=== PATIENT | female | born 1940 | race Caucasian/White ===

== ENCOUNTER 2021-06-11 12:32 | Emergency (ER) | payer MEDICARE, SELFPAY ==
--- NOTE | ~2021-06-11 | XR_ITS ---
EXAMINATION: XR HAND, LEFT CLINICAL INFORMATION: Fall. COMPARISON: None TECHNIQUE: Three views of the left hand. FINDINGS: No fracture. No dislocation. No soft tissue abnormality. This degenerative joint narrowing and marginal bone spurs of the IP joints of the digits and marked degenerative joint narrowing and subchondral sclerosis and spur of the first metacarpal carpal joint. XR/XR hand LT min 3V IMPRESSION: 1. No acute abnormality right hand. 2. Degenerative joint disease of the hand.
--- NOTE | ~2021-06-11 | XR_ITS ---
EXAMINATION: XR SHOULDER, RIGHT CLINICAL INFORMATION: Fall. Pain. COMPARISON: None TECHNIQUE: Three views of the right shoulder. FINDINGS: No fracture. No dislocation. There is small spur of the distal clavicle at the acromioclavicular joint along the inferior surface of the clavicle. No soft tissue calcification. XR/XR shoulder RT min 2V IMPRESSION: 1. No acute abnormality. 2. Degenerative change of the acromioclavicular joint.
--- NOTE | ~2021-06-11 | XR_ITS ---
EXAMINATION: XR CLAVICLE, RIGHT CLINICAL INFORMATION: Fall. Pain. COMPARISON: None TECHNIQUE: Single of the right clavicle. FINDINGS: No fracture of the clavicle. No dislocation of the sternoclavicular or the acromioclavicular joint. There is degenerative spur of the distal clavicle at the inferior side of the bone at the acromioclavicular joint. XR/XR clavicle RT IMPRESSION: No acute abnormality right clavicle.
--- NOTE | ~2021-06-11 | XR_ITS ---
EXAMINATION: XR BILATERAL HIPS WITH AP PELVIS CLINICAL INFORMATION: Fall COMPARISON: None TECHNIQUE: AP view of the pelvis and single views of each hip were obtained. FINDINGS: No acute fracture or malalignment. Mild osteoarthritis in the hips is characterized by small marginal osteophytes primarily. Enthesopathic spurring is present at the greater trochanters and anterior superior iliac spines. There is degenerative spondylosis in the lower lumbar spine. . Symphysis and SI joints appear relatively well-preserved. Soft tissues are unremarkable. XR/XR hips JERO min 3V IMPRESSION: No acute fracture or malalignment in the pelvis and hips. Mild osteoarthritis in the hips.
--- NOTE | ~2021-06-11 | XR_ITS ---
EXAMINATION: XR ELBOW, RIGHT CLINICAL INFORMATION: Fall. COMPARISON: None TECHNIQUE: Three views of the right elbow. FINDINGS: There is no fracture. No dislocation. No joint effusion. There are spurs of the proximal radius along the metadiaphysis of the radial head. There is spur of the distal humerus at the posterior medial humeral condyle. XR/XR elbow RT min 3V IMPRESSION: No acute abnormality of the elbow.
[2021-06-11 14:28] VITALS: BP 201/91; PULSE 91; RESP 18; TEMP 36.7; O2SAT 99; BMI 29.2
== END 2021-06-11 17:40 | disposition left against medical advice (07) ==
PROVIDERS: Emergency Provider Emergency Medicine; PCP Internal Medicine
DX: M79.601 Pain in right arm (principal); Z91.81 History of falling
CPT/HCPCS: 73000; 73030; 73080; 73130; 73522; 99282; 99283

== ENCOUNTER 2021-06-30 10:30 | Outpatient (REF) | payer MEDICARE, SELFPAY ==
--- NOTE | ~2021-06-30 | MM_ITS ---
EXAMINATION: BONE DENSITOMETRY CLINICAL INDICATION: Other specified disorders of bone density and structure. COMPARISON: Baseline BD dated 02/13/2019. TECHNIQUE: Using a [employer] DXA System (software version: 13.1) manufactured by [employer], dual-energy x-ray absorptiometry was performed of the lumbar spine and left hip. The images are of good technical quality. Summary results are attached. FINDINGS: AP SPINE L1-L2 (excluding L3 and L4): The data of L1-L4 has been changed to exclude the L3 and L4 vertebral bodies, because degenerative changes at these levels may cause overestimation of lumbar spine density. Current: BMD 1.141 g/cm2, Z-score 1.6, T-score -0.2, normal, 0.9% increase from baseline (<5% change is not significant). Baseline: BMD 1.131 g/cm2. LEFT FEMUR, NECK: Current: BMD 0.762 g/cm2, Z-score 0.1, T-score -2.0, osteopenia. Baseline: BMD 0.795 g/cm2. LEFT FEMUR, TOTAL: Current: BMD 0.924 g/cm2, Z-score 1.3, T-score -0.7, normal, 0.3% increase from baseline (<5% change is not significant). Baseline: BMD 0.921 g/cm2. IDENTIFIED RISK FACTORS: Recurrent falls, history of fracture (adult), thiazide, menopause, left oophorectomy. HISTORY OF FRACTURE: Wrist. MEDICATIONS: None listed. MM/XR DEXA axial skeleton IMPRESSION: 1. DIAGNOSIS: Osteopenia based on the lowest T-score value of -2.0 in the femoral neck applying World Health Organization criteria. 2. 10-YEAR FRACTURE RISK PREDICTION, FRAX: Major osteoporotic fracture (clinical spine, forearm, hip or shoulder) 22.3%. Hip fracture 5.9%. 3. Treatment Recommendations: NOF guidelines recommend consideration for treatment in postmenopausal women and men age 50 and older presenting with the following: -A hip or vertebral (clinical or morphometric) fracture. -T-score less than or equal to -2.5 at the femoral neck or spine after appropriate evaluation to exclude secondary causes. -Low bone mass at the hip or spine and a 10-year fracture probability by FRAX of greater than or equal to 3% for hip fracture or greater than or equal to 20% for major osteoporotic fracture based on the [place] adapted WHO algorithm. 4. Other Recommendations: All treatment decisions require clinical judgment and consideration of individual patient factors, including patient preferences, comorbidities, previous drug use, risk factors not captured in the FRAX model (e.g. frailty, falls, vitamin D deficiency, increased bone turnover, interval significant decline in bone density) and possible under or overestimation of fracture risk by FRAX. Additional medical evaluation for secondary cause of low bone mineral density may be appropriate. FUTURE SCAN RECOMMENDATION: People with diagnosed cases of osteoporosis or at high risk for fracture should have regular bone mineral density tests. For patients eligible for Medicare, routine testing is allowed once every 2 years. The testing frequency can be increased to one year for patients who have rapidly progressing disease, those who are receiving or discontinuing medical therapy to restore bone mass, or have additional risk factors.
== END 2021-06-30 10:31 | disposition home or self-care (01) ==
LOC: HO.MAMMO 10:30
PROVIDERS: Visit Provider Internal Medicine
DX: Z13.820 Encounter for screening for osteoporosis (principal); M85.80 Other specified disorders of bone density and structure, unspecified site; Z78.0 Asymptomatic menopausal state; Z87.81 Personal history of (healed) traumatic fracture; Z90.721 Acquired absence of ovaries, unilateral
CPT/HCPCS: 77080

== ENCOUNTER 2022-08-28 09:59 | Outpatient (REF) | payer MEDICARE, SELFPAY ==
[2022-08-28 10:46] LABS: MANUAL DIFF FLAG NO
[2022-08-28 10:54] LABS: Basophils Absolute Auto 0.1 X10*3/uL (0.0-0.2); Basophils Percent Auto 0.5 % (0-2); Eosinophils Absolute Auto 0.1 X10*3/uL (0.0-0.4); Hematocrit 39.1 % (37.0-47.0); Hemoglobin 13.3 g/dl (12.0-16.0); Imm Gran Abs Auto 0.03 X10*3/uL (0.00-0.03); Imm Gran Pct Auto 0.3 % (0.0-0.4); Lymphocytes Absolute Auto 2.8 X10*3/uL (1.2-4.9); Lymphocytes Percent Auto 30.2 % (20-40); Mean Corpuscular Hemoglobin 32.3 pg (27.0-33.0); Mean Corpuscular Volume 94.9 fL (80.0-98.0); Mean Platelet Volume 9.8 fL (9.4-12.3); Monocytes Absolute Auto 0.7 X10*3/uL (0.1-1.2); Monocytes Percent Auto 7.4 % (2-11); Neutrophils Absolute Auto 5.6 x10*3/uL (2.0-8.3); Neutrophils Percent Auto 60.6 % (45-73); Platelet Count 253 X10*3/uL (160-400); Red Blood Count 4.12 X10*6/uL (4.20-5.50); Red Cell Distribution Width 12.3 % (11.0-16.0); White Blood Count 9.2 X10*3/uL (4.8-10.8)
[2022-08-28 11:51] LABS: Alanine Aminotransferase 34 U/L (0-31); Albumin Level 4.3 g/dL (3.5-5.0); Alkaline Phosphatase 90 U/L (39-117); Anion Gap 13 (12-20); Aspartate Amino Transferase 34 U/L (5-31); Bilirubin Total 0.8 mg/dL (0.0-1.0); Blood Urea Nitrogen 13 mg/dL (9-16); Carbon Dioxide 30 mmol/L (22-29); Chloride 102 mmol/L (96-108); Cholesterol 218 mg/dL; Estimated Glomerular Filt Rate > 60; Glucose Random 104 mg/dL (60-115); HDL Cholesterol 59 mg/dL; LDL Cholesterol Calculated 127 mg/dl; Potassium 3.9 mmol/L (3.3-5.1); Sodium 141 mmol/L (135-145); Total Protein 6.8 g/dL (6.5-8.0); Triglycerides 163 mg/dL
[2022-08-28 12:11] LABS: Free T4 (Free Thyroxine) 0.89 ng/dL (0.71-1.85); Thyroid Stimulating Hormone 2.81 uIU/mL (0.32-4.0); Vitamin B12 431 pg/mL (200-900); Vitamin D 25-OH Total 24.5 ng/mL (>30)
== END 2022-08-28 10:00 | disposition home or self-care (01) ==
LOC: HO.10HDL 09:59
PROVIDERS: Visit Provider Internal Medicine
DX: E78.00 Pure hypercholesterolemia, unspecified (principal); M85.80 Other specified disorders of bone density and structure, unspecified site; E55.9 Vitamin D deficiency, unspecified
CPT/HCPCS: 36415; 80053; 80061; 82306; 82607; 82746; 84439; 84443; 85025

== ENCOUNTER 2023-03-08 08:46 | Outpatient (AMB) | payer MEDICARE, SELFPAY ==
[2023-03-08 08:46] VITALS: BP 144/66; PULSE 67; O2SAT 99; BMI 29.9
--- NOTE | 2023-03-08 08:46 | MHC.PC.OV ---
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 per policy Accompanied by: Self / Same As Patient Allergies lisinopril Allergy (Unknown, Verified 11/21/22 13:42) Unknown amlodipine Adverse Reaction (Intermediate, Verified 11/21/22 13:42) leg swelling Tobacco use date assessed: 11/21/22 Fall risk assessment: No Falls in past year Last assessed Fall Risk: 03/08/23 Dental Screening Dental Screen Date: 03/08/23 Did you have a dental visit in the last 12 months?: Yes Did you have a dental problem in the last 6 months where you did not have access to dental care?: No Was dental information given to patient?: Patient has dentist HPI eye surgery 03/20/23 HPI Details Having a right cataract repaired; has HTN and hyperlipidemia; no history of CAD [facility] Medical History Obesity (BMI 30.0-34.9) Breast cancer screening by mammogram Overweight (BMI 25.0-29.9) Ulnar neuropathy Anxiety and depression Hypercholesterolemia Vitamin D deficiency Lumbar degenerative disc disease GERD (gastroesophageal reflux disease) Hypertension Surgical History History of carpal tunnel surgery History of lumbar surgery History of left oophorectomy History of D&C History of tonsillectomy Family History Father No problems noted. Mother Cancer Hypertension Brother In good health Son In good health Son In good health Social History Housing: House Alcohol intake: current Alcohol intake frequency: a few times a week Patient Tobacco Use Status: Never used Tobacco e-Cigarette/Vaping Use: Never Used Second Hand Smoke Exposure: No service: No Current occupational status: retired Cognitive needs: No Hearing needs: Yes (hearing aide) Vision needs: Yes (glasses) Questionnaire PHQ-9 Over the last 2 weeks, how often have you been bothered by any of the following problems? 1. Little interest or pleasure in doing things: not at all 2. Feeling down, depressed, or hopeless: not at all 3. Trouble falling or staying asleep, or sleeping too much: not at all 4. Feeling tired or having little energy: not at all 5. Poor appetite or overeating: not at all 6. Feeling bad about yourself - or that you are a failure or have let yourself or your family down: not at all 7. Trouble concentrating on things, such as reading the newspaper or watching television: not at all 8. Moving or speaking so slowly that other people could have noticed. Or the opposite - being so fidgety or restless that you have been moving around a lot more than usual: not at all 9. Thoughts that you would be better off or of hurting yourself in some way: not at all Total score: 0 Depression Screening Interpretation: Negative Source: Developed by Drs. Ag Disla, Ruma Bowen, Chico Garza and colleagues, with an educational emil from [email or web address]. Thrive Questionnaire Date Thrive assessed: 11/21/22 AUDIT C Alcohol Use Questionnaire (AUDIT-C) 1. How often do you have a drink containing alcohol?: Never 2. How many drinks containing alcohol do you have on a typical day when you are drinking?: 1 or 2 3. How often do you have six or more drinks on one occasion?: Never Total Score: 0 LORA-7 AMB Questionnaire LORA-7 Date LORA - 7 assessed: 11/21/22 Source: Developed by Drs. Ag Disla, Chico Ramirez and colleagues, with an educational emil from [email or web address]. Review of Systems Const Denies chills, Denies fatigue, Denies headache(s) and Denies weight loss Eyes Denies change in vision, Denies diplopia and Denies eye pain ENT Denies vertigo, Denies dizziness, Denies headache(s) and Denies nasal discharge Card Denies chest pain, Denies rapid heart rate and Denies dyspnea on exertion Resp Denies chest congestion, Denies cough, Denies pain with cough and Denies dyspnea on exertion GI Denies abdominal pain, Denies hematochezia and Denies change in bowel habits Musc Denies myalgias, Denies arthralgias and Denies joint swelling Skin/Breast Denies lesions and Denies unusual bruising Neuro Denies vertigo, Denies dizziness, Denies headache(s) and Denies focal weakness Endo Denies fatigue Physical exam (Primary Care) Vital Signs: Last Vital Signs Pulse 67 03/08/23 08:46 BP 144/66 H 03/08/23 08:46 Pulse Ox 99 03/08/23 08:46 Oxygen Delivery Method Room Air 03/08/23 08:46 BMI result Body Mass Index 29.9 Tobacco/Smoking Status: Tobacco use Status Tobacco use date assessed 11/21/22 03/08/23 08:47 Patient Tobacco Use Status Never used Tobacco 03/08/23 08:47 e-Cigarette/Vaping Use Never Used 03/08/23 08:47 PHQ-9: PHQ-9 Score PHQ-9: Total score 0 03/08/23 08:47 Depression Screening Interpretation: Negative Thrive Assessment: Date of Thrive Assessment Date Thrive assessed 11/21/22 03/08/23 08:47 Const General: cooperative, healthy appearing and no acute distress Orientation/consciousness: oriented to person, oriented to place and oriented to time HENMT Head: Yes normal to inspection, Yes normocephalic and Yes atraumatic Mouth: Normal oral and palatal mucosa present and tongue normal Throat: Yes posterior oropharynx normal and Yes uvula midline Eyes General: appearance normal, both eyes and all related structures Neck Neck: Yes normal visual inspection, Yes full ROM and Yes no lymphadenopathy Thyroid: Thyroid normal Carotids: normal carotid upstroke Chest Chest palpation & inspection: normal inspection of the chest Resp Effort & Inspection: normal respiratory effort and able to speak in complete sentences Auscultation: clear to auscultation bilaterally Cardio Jugular venous distension: no JVD Palpation: normal PMI Rate: regular rate Rhythm: regular rhythm Heart sounds: S1 normal heart sound present and S2 normal heart sound present GI Inspection: Yes normal to inspection Palpation (GI): Soft to palpation and No hepatosplenomegaly present Auscultation: normal bowel sounds General: Yes no CVA tenderness Back/Spine/Pelvis Back: no CVA tenderness Skin General skin exam: no rashes or lesions noted Neuro General: oriented to person, oriented to place and oriented to time Extrem General: Yes normal to inspection and Yes full ROM Assessment and Plan Assessment & Plan (1) Preop exam for internal medicine: Code(s): Z01.818 - Encounter for other preprocedural examination Plan: low risk for cardiovascular complications; cleared for surgery (2) Hypertension: Code(s): I10 - Essential (primary) hypertension Qualifiers: Hypertension type: essential hypertension Qualified Code(s): I10 - Essential (primary) hypertension Plan: stable; same rx (3) Hypercholesterolemia: Code(s): E78.00 - Pure hypercholesterolemia, unspecified Plan: stable; sa,e rx Coding Level of Care Code Est Pt Level 4 (83835) Diagnoses Preop exam for internal medicine Z01.818 Essential hypertension I10 Hypertension type: essential hypertension Hypercholesterolemia E78.00 Additional Codes PHQ-9 - 81238 - PHQ-9 Billing: ([id number])
== END 2023-03-08 09:17 | disposition home or self-care (01) ==
PROVIDERS: PCP Internal Medicine; Visit Provider Internal Medicine
DX: Z01.818 Encounter for other preprocedural examination (principal); I10 Essential (primary) hypertension; E78.00 Pure hypercholesterolemia, unspecified
CPT/HCPCS: 99214

== ENCOUNTER 2023-05-23 10:42 | Outpatient (AMB) | payer MEDICARE, SELFPAY ==
[2023-05-23 10:48] VITALS: BP 180/80; PULSE 63; O2SAT 99; BMI 29.9
--- NOTE | 2023-05-23 10:49 | MHC.PC.OV ---
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 Required: No Accompanied by: Self / Same As Patient Allergies lisinopril Allergy (Unknown, Verified 05/23/23 10:49) Unknown amlodipine Adverse Reaction (Intermediate, Verified 05/23/23 10:49) leg swelling Tobacco use date assessed: 11/21/22 Fall risk assessment: No Falls in past year Last assessed Fall Risk: 05/23/23 Dental Screening Dental Screen Date: 05/23/23 Did you have a dental visit in the last 12 months?: Yes Did you have a dental problem in the last 6 months where you did not have access to dental care?: No Was dental information given to patient?: Patient has dentist HPI Hypertension HPI Details [age] year old overweight female with hypertension hypercholesterolemia GERD last seen in November 2022 patient's colonoscopy is up-to-date mammogram is due in April bone density is up-to-date. Review of the notes in February 2023 patient was seen here in the office for preoperative evaluation for eye surgery March 2023 cleared for surgery. R eye glaucoma and cataract surgery hx of shingles and has a scar, mild improvement , L eye still has cataract but has macular deg. so not done. 2022 last blood work [facility] Medical History (Updated 05/23/23 @ 11:30 by Devin Reina MD) Breast cancer screening by mammogram Obesity (BMI 30.0-34.9) Overweight (BMI 25.0-29.9) Ulnar neuropathy Anxiety and depression Hypercholesterolemia Vitamin D deficiency Lumbar degenerative disc disease GERD (gastroesophageal reflux disease) Hypertension Surgical History History of carpal tunnel surgery History of lumbar surgery History of left oophorectomy History of D&C History of tonsillectomy Family History Father No problems noted. Mother Cancer Hypertension Brother In good health Son In good health Son In good health Social History Housing: House Alcohol intake: current Alcohol intake frequency: a few times a week Patient Tobacco Use Status: Never used Tobacco e-Cigarette/Vaping Use: Never Used Second Hand Smoke Exposure: No service: No Current occupational status: retired Cognitive needs: No Hearing needs: Yes (hearing aide) Vision needs: Yes (glasses) Questionnaire Thrive Questionnaire Date Thrive assessed: 11/21/22 LORA-7 AMB Questionnaire LORA-7 Date LORA - 7 assessed: 11/21/22 Source: Developed by Drs. Ag Disla, Ruma Bowen, Chico Garza and colleagues, with an educational emil from [employer]. Physical exam (Primary Care) Vital Signs: Last Vital Signs Pulse 63 05/23/23 10:48 BP 180/80 H 05/23/23 10:48 Pulse Ox 99 05/23/23 10:48 Oxygen Delivery Method Room Air 05/23/23 10:48 BMI result Body Mass Index 29.9 Tobacco/Smoking Status: Tobacco use Status Tobacco use date assessed 11/21/22 05/23/23 10:50 Patient Tobacco Use Status Never used Tobacco 05/23/23 10:50 e-Cigarette/Vaping Use Never Used 05/23/23 10:50 Thrive Assessment: Date of Thrive Assessment Date Thrive assessed 11/21/22 05/23/23 10:50 Const General: alert; No acute distress Eyes Conjunctivae: conjunctivae normal Resp Auscultation: clear to auscultation bilaterally Cardio Rate: regular rate Rhythm: regular rhythm GI Inspection: Yes normal to inspection Extrem General: Yes normal to inspection and No edema Assessment and Plan Assessment & Plan (1) Hypertension: Code(s): I10 - Essential (primary) hypertension Qualifiers: Hypertension type: essential hypertension Qualified Code(s): I10 - Essential (primary) hypertension Plan: Continue with blood pressure medication. Decrease salt intake and exercise patient is taking hydrochlorothiazide 25 mg once a day and losartan 100 mg once a day and metoprolol 25 mg once a day. 3 BP med still high - advised work up renin agiotensin (2) Hypercholesterolemia: Code(s): E78.00 - Pure hypercholesterolemia, unspecified Plan: Avoid fried foods, chicken skin, eggs, butter margarine, pastries and meat. Be it pork or beef they have a lot of cholesterol LDL goal of less than 130 and triglyceride of less than 150. Patient on atorvastatin 10 mg once a day (3) GERD (gastroesophageal reflux disease): Code(s): K21.9 - Gastro-esophageal reflux disease without esophagitis Qualifiers: Esophagitis presence: without esophagitis Qualified Code(s): K21.9 - Gastro-esophageal reflux disease without esophagitis Plan: Avoid the foods that causes that usually spicy foods, tomato products, juices, coffee, soda and foods that your sensitive to. After eating do not lie down, allow 3-4 hours before in lie down. And keep the head of bed above 30 degrees to avoid the acid from going up. (4) Overweight (BMI 25.0-29.9): Code(s): E66.3 - Overweight Plan: Diet and exercise (5) Breast cancer screening by mammogram: Code(s): Z12.31 - Encounter for screening mammogram for malignant neoplasm of breast Plan: Reminded about mammogram Orders: Orders US renal BI Today I10 - Essential (primary) hypertension US renal doppler Today I10 - Essential (primary) hypertension Cortisol, Free Today I10 - Essential (primary) hypertension Aldost/Renin Today I10 - Essential (primary) hypertension UA w Microscopic Today I10 - Essential (primary) hypertension Complete Blood Count Auto Diff Today I10 - Essential (primary) hypertension Thyroid Stimulating Hormone Today I10 - Essential (primary) hypertension Comprehensive Met. Panel Today I10 - Essential (primary) hypertension Coding Level of Care Code Est Pt Level 4 (36180) Diagnoses Essential hypertension I10 Hypertension type: essential hypertension Hypercholesterolemia E78.00 Gastroesophageal reflux disease without esophagitis K21.9 Esophagitis presence: without esophagitis Overweight (BMI 25.0-29.9) E66.3 Breast cancer screening by mammogram Z12.
== END 2023-05-23 11:45 | disposition home or self-care (01) ==
PROVIDERS: PCP Internal Medicine; Visit Provider Internal Medicine
DX: I10 Essential (primary) hypertension (principal); E78.00 Pure hypercholesterolemia, unspecified; K21.9 Gastro-esophageal reflux disease without esophagitis; E66.3 Overweight; Z12.31 Encounter for screening mammogram for malignant neoplasm of breast
CPT/HCPCS: 99214

== ENCOUNTER 2023-06-26 08:37 | Outpatient (REF) | payer MEDICARE, SELFPAY ==
--- NOTE | ~2023-06-26 | US_ITS ---
EXAMINATION: ULTRASOUND RENAL WITH DOPPLER CLINICAL INFORMATION: Hypertension. COMPARISON: None. TECHNIQUE: Real-time grayscale, color Doppler, and duplex Doppler evaluation of the kidneys and renal vasculature was performed. FINDINGS: RENAL MEASUREMENTS: Right: 8.7 x 4.8 x 4.4 cm (Sag x AP x TV) Left: 9.0 x 4.8 x 6.2 cm (Sag x AP x TV) Small kidneys. Renal parenchyma is mildly echogenic suggesting chronic medical renal disease. No hydronephrosis. DOPPLER INTERROGATION: AORTA: Mid aorta: 89 cm/sec RIGHT MAIN RENAL ARTERY: Proximal: 167 cm/sec Mid: 117 cm/sec Distal: 156 cm/sec LEFT MAIN RENAL ARTERY: Proximal: 99 cm/sec Mid: 93 cm/sec Distal: 115 cm/sec RENAL-AORTIC RATIO (RAR): Right: 1.9 Left: 1.3 SEGMENTAL RESISTIVE INDICES: Right: 0.79-0.82 Left: 0.75-0.87 RENAL VEINS: Right: Patent with normal waveform. Left: Patent with normal waveform. US/US renal BI IMPRESSION: No evidence of hemodynamically significant renal artery stenosis. Small kidneys, echogenic renal parenchyma, and elevated resistive indices suggesting chronic medical renal disease.
--- NOTE | ~2023-06-26 | US_ITS ---
EXAMINATION: ULTRASOUND RENAL WITH DOPPLER CLINICAL INFORMATION: Hypertension. COMPARISON: None. TECHNIQUE: Real-time grayscale, color Doppler, and duplex Doppler evaluation of the kidneys and renal vasculature was performed. FINDINGS: RENAL MEASUREMENTS: Right: 8.7 x 4.8 x 4.4 cm (Sag x AP x TV) Left: 9.0 x 4.8 x 6.2 cm (Sag x AP x TV) Small kidneys. Renal parenchyma is mildly echogenic suggesting chronic medical renal disease. No hydronephrosis. DOPPLER INTERROGATION: AORTA: Mid aorta: 89 cm/sec RIGHT MAIN RENAL ARTERY: Proximal: 167 cm/sec Mid: 117 cm/sec Distal: 156 cm/sec LEFT MAIN RENAL ARTERY: Proximal: 99 cm/sec Mid: 93 cm/sec Distal: 115 cm/sec RENAL-AORTIC RATIO (RAR): Right: 1.9 Left: 1.3 SEGMENTAL RESISTIVE INDICES: Right: 0.79-0.82 Left: 0.75-0.87 RENAL VEINS: Right: Patent with normal waveform. Left: Patent with normal waveform. US/US renal doppler IMPRESSION: No evidence of hemodynamically significant renal artery stenosis. Small kidneys, echogenic renal parenchyma, and elevated resistive indices suggesting chronic medical renal disease.
[2023-06-26 09:38] LABS: MANUAL DIFF FLAG NO
[2023-06-26 09:56] LABS: Basophils Absolute Auto 0.1 X10*3/uL (0.0-0.2); Basophils Percent Auto 0.6 % (0-2); Eosinophils Absolute Auto 0.1 X10*3/uL (0.0-0.4); Hematocrit 38.8 % (37.0-47.0); Hemoglobin 13.7 g/dl (12.0-16.0); Imm Gran Abs Auto 0.03 X10*3/uL (0.00-0.03); Imm Gran Pct Auto 0.4 % (0.0-0.4); Lymphocytes Absolute Auto 2.1 X10*3/uL (1.2-4.9); Lymphocytes Percent Auto 26.8 % (20-40); Mean Corpuscular HGB Conc 35.3 g/dl (31.0-35.0); Mean Corpuscular Hemoglobin 33.1 pg (27.0-33.0); Mean Corpuscular Volume 93.7 fL (80.0-98.0); Mean Platelet Volume 9.3 fL (9.4-12.3); Monocytes Absolute Auto 0.6 X10*3/uL (0.1-1.2); Monocytes Percent Auto 7.7 % (2-11); Neutrophils Absolute Auto 4.9 x10*3/uL (2.0-8.3); Neutrophils Percent Auto 63.5 % (45-73); Platelet Count 247 X10*3/uL (160-400); Red Blood Count 4.14 X10*6/uL (4.20-5.50); Red Cell Distribution Width 11.9 % (11.0-16.0); White Blood Count 7.7 X10*3/uL (4.8-10.8)
[2023-06-26 10:13] LABS: Appearance Urine Cloudy; Color Urine Yellow; Glucose Urine UA Negative (Negative); Leukocyte Esterase Urine Moderate (2+) (Negative); Nitrite Urine Negative (Negative); UMIC TRIGGER UA YES; Urine Blood Negative (Negative); Urine Ketones Negative (Negative); Urine Protein Negative (Neg-Trace)
[2023-06-26 10:26] LABS: Bacteria Urine 3+ (None Seen); Hyaline Casts Urine 0-2 /LPF (0-2); RBC Urine 0-2 /HPF (0-2)
[2023-06-26 10:28] LABS: Alanine Aminotransferase 33 U/L (0-31); Albumin Level 4.5 g/dL (3.5-5.0); Alkaline Phosphatase 85 U/L (39-117); Anion Gap 12 (12-20); Aspartate Amino Transferase 30 U/L (5-31); Bilirubin Total 0.6 mg/dL (0.0-1.0); Blood Urea Nitrogen 17 mg/dL (9-16); Calcium 10.1 mg/dL (8.4-10.2); Carbon Dioxide 30 mmol/L (22-29); Chloride 96 mmol/L (96-108); Estimated Glomerular Filt Rate 58; Glucose Random 101 mg/dL (60-115); Potassium 3.6 mmol/L (3.3-5.1); Sodium 134 mmol/L (135-145); Total Protein 7.2 g/dL (6.5-8.0)
[2023-06-26 10:43] LABS: Thyroid Stimulating Hormone 2.25 uIU/mL (0.32-4.0)
[2023-07-02 13:38] LABS: Aldosterone/Renin Ratio 0.7 Ratio (0.9-28.9); Plasma Renin Activity 9.03 ng/mL/h (0.25-5.82)
[2023-07-02 18:23] LABS: Cortisol, Free 0.61 mcg/dL
== END 2023-06-26 08:38 | disposition home or self-care (01) ==
LOC: HO.US 08:37
PROVIDERS: PCP Internal Medicine; Visit Provider Internal Medicine
DX: I10 Essential (primary) hypertension (principal)
CPT/HCPCS: 36415; 76775; 80053; 81001; 82088; 82530; 84443; 85025; 93975

== ENCOUNTER 2023-07-17 13:11 | Outpatient (AMB) | payer MEDICARE, SELFPAY ==
[2023-07-17 13:15] VITALS: BP 170/72; PULSE 82; O2SAT 98; BMI 28.5
--- NOTE | 2023-07-17 13:15 | MHC.PC.OV ---
Vital Signs 07/17/23 13:15 Height 5 ft Weight 66.224 kg BMI 28.5 BP 170/72 H Blood Pressure Location Lt brachial Position Sitting Pulse 82 Pulse Source Pulse Oximeter Pulse Oximetry (%) 98 Oxygen Delivery Method Room Air Intake [place] [facility] [place] - Abdominal Pain Intake Note: Patient here [facility] discharge follow up nausea, vomiting dish 07/15/23 Telecom Field Technician Required: No Accompanied by: Self / Same As Patient Allergies lisinopril Allergy (Unknown, Verified 07/17/23 13:20) Unknown amlodipine Adverse Reaction (Intermediate, Verified 07/17/23 13:20) leg swelling Tobacco use date assessed: 07/17/23 Fall risk assessment: 1 Fall in past year Last assessed Fall Risk: 07/17/23 Dental Screening Dental Screen Date: 07/17/23 Did you have a dental problem in the last 6 months where you did not have access to dental care?: No Was dental information given to patient?: Patient has dentist HPI HPI Comments History of Present Illness Details 83-year-old female with history of hypertension, GERD, hyperlipidemia, osteopenia presents to the office for ER follow-up. Patient was seen at [facility] ED on both 07/13 and 07/14. She has been taking Ozempic to assist with weight loss for the last 4 weeks and has lost a total of 9 lb and is feeling optimistic about this. Dose was increase to 0.5mg on saturday. However, for the last 9 she has been feeling generally unwell with waves of nausea. Five days ago, began experiencing vomiting as well as chills and some occasional diarrhea after eating dinner. Around 03:00 early Saturday morning, she got up to go to the bathroom and felt lightheaded and syncopized while urinating which she attributes to vasovagal reaction. She woke up on the ground and presented to the ED for evaluation. She had also been noting some aching pain in the upper back neck and bilateral arms but no focal weakness was noted. She began feeling lightheaded and syncopized with head strike. Head CT was negative for any acute intracranial abnormality. Labs did reveal a hypokalemia of 2.6 and hyponatremia 127. Electrolytes were repleted with IV potassium and 1 L normal saline. She was recommended for admission but declined. Tropes were flat. She was discharged with potassium chloride 10 mEq 4 times daily. She also tells me she held her hydrochlorothiazide due to the hypokalemia and ongoing vomiting. Due to persistent vomiting, she returned to the ED for re-evaluation. Potassium level had improved to 4.0. Troponins were again negative. She was again offered admission but declined. She was discharged with prescription for Zofran. Today she states she is starting to feel better. No ongoing nausea and vomiting. She still experiences ache in the upper trapezius bilaterally and neck with occasional radition into the bilateral arms. SHe has been taking tylenol. Last dose of ozempic was saturday. She continues to hold hctz due to concerns about potassium. However, bp is quite uncontrolled today at 182/80 on recheck. She does check bp at home. [facility] Medical History Breast cancer screening by mammogram Obesity (BMI 30.0-34.9) Overweight (BMI 25.0-29.9) Ulnar neuropathy Anxiety and depression Hypercholesterolemia Vitamin D deficiency Lumbar degenerative disc disease GERD (gastroesophageal reflux disease) Hypertension Surgical History History of carpal tunnel surgery History of lumbar surgery History of left oophorectomy History of D&C History of tonsillectomy Family History Father No problems noted. Mother Cancer Hypertension Brother In good health Son In good health Son In good health Social History Housing: House Alcohol intake: current Alcohol intake frequency: a few times a week Patient Tobacco Use Status: Never used Tobacco e-Cigarette/Vaping Use: Never Used Second Hand Smoke Exposure: No service: No Current occupational status: retired Cognitive needs: Yes Hearing needs: Yes (hearing aide) Vision needs: Yes (glasses) Questionnaire PHQ-9 Over the last 2 weeks, how often have you been bothered by any of the following problems? 1. Little interest or pleasure in doing things: not at all 2. Feeling down, depressed, or hopeless: not at all 3. Trouble falling or staying asleep, or sleeping too much: not at all 4. Feeling tired or having little energy: not at all 5. Poor appetite or overeating: not at all 6. Feeling bad about yourself - or that you are a failure or have let yourself or your family down: not at all 7. Trouble concentrating on things, such as reading the newspaper or watching television: not at all 8. Moving or speaking so slowly that other people could have noticed. Or the opposite - being so fidgety or restless that you have been moving around a lot more than usual: not at all 9. Thoughts that you would be better off or of hurting yourself in some way: not at all Total score: 0 Depression Screening Interpretation: Negative Depression Screening Done: Yes Source: Developed by Drs. Ag Disla, Ruma Bowen, Chico Garza and colleagues, with an educational emil from [employer]. Thrive Questionnaire Date Thrive assessed: 07/17/23 I am a: Patient What is your living situation today?: I have a steady place to live Within the past 12 months, did the food you bought not last and you didn't have the money to get more?: Never true Within the past 12 months, did you worry whether your food would run out before you got money to buy more?: Never true Do you have trouble paying for medicines?: No Do you have trouble getting transportation to medical appointments?: No Do you have trouble paying your heating and electricity bill?: No Do you have trouble taking care of your child, family member or friend?: No Do you have trouble with day-to-day activities such as bathing, preparing meals, shopping, managing finances, etc.?: No Are you currently unemployed and looking for a job?: No Are you interested in more education?: No Please select the resources that you would like help with: None Currently or been in a relationship where the following occur: no concerns reported THRIVE Score: 0 AUDIT C Alcohol Use Questionnaire (AUDIT-C) 1. How often do you have a drink containing alcohol?: Monthly or less 2. How many drinks containing alcohol do you have on a typical day when you are drinking?: 1 or 2 3. How often do you have six or more drinks on one occasion?: Never Total Score: 1 LORA-7 AMB Questionnaire LORA-7 Date LORA - 7 assessed: 07/17/23 Feeling nervous, anxious, or on edge: 0 = Not at all Not being able to stop or control worryin = Not at all Worrying too much about different things: 0 = Not at all Trouble relaxin = Not at all Being so restless that it is hard to sit still: 0 = Not at all Becoming easily annoyed or irritable: 0 = Not at all Feeling afraid as if something awful might happen: 0 = Not at all Total LORA-7 score (0-4 normal; 5-9 mild; 10-14 moderate; 15-21 severe): 0 Source: Developed by Drs. Ag Disla, Ruma Bowen, Chico Garza and colleagues, with an educational emil from [employer]. Review of Systems Const All systems reviewed & are unremarkable except as noted in HPI and below Physical exam (Primary Care) Vital Signs: Last Vital Signs Pulse 82 07/17/23 13:15 BP 170/72 H 07/17/23 13:15 Pulse Ox 98 07/17/23 13:15 Oxygen Delivery Method Room Air 07/17/23 13:15 BMI result Body Mass Index 28.5 Tobacco/Smoking Status: Tobacco use Status Tobacco use date assessed 07/17/23 07/17/23 13:24 Patient Tobacco Use Status Never used Tobacco 07/17/23 13:18 e-Cigarette/Vaping Use Never Used 07/17/23 13:18 PHQ-9: PHQ-9 Score PHQ-9: Total score 0 07/17/23 13:56 Depression Screening Interpretation: Negative Thrive Assessment: Date of Thrive Assessment Date Thrive assessed 07/17/23 07/17/23 13:24 Currently or been in a relationship where the following occur: no concerns reported Const Other: Constitutional - Awake and Alert, No apparent distress Eyes - PERRLA, EOMI Cardiovascular - S1S2, RRR, No edema Neck - no midline, but b/l ttp with full ROM. ttp to bilateral upper trapezius Respiratory - Normal lung expansion, Normal respiratory effort, No respiratory distress, CTA bilaterally Gastrointestinal - NT / ND; +BS; No rebound or guarding Extremities - no calf tenderness bilaterally, no swelling Skin - Warm/Dry Neurological - Alert & oriented x3, 5/5 strength BUE Psychological - Appropriate affect Results Reviewed Results Reviewed: ER report x2, cbc, bmp, trop, ua, ct head Assessment and Plan Assessment & Plan (1) Syncope: Code(s): R55 - Syncope and collapse Plan: likely due to hypovolumia from GI losses. Question whether GI losses were r/t Ozempic dose increase vs viral gastroenteritis given accompanied chills and diarrhea reported by patient. Ozempic is more typically associated with constipation. However, pt reports that she is no longer interested in taking ozempic and will discontinue. Encouraged continued healthy lifestyle with increase water intake. (2) Hypokalemia: Code(s): E87.6 - Hypokalemia Plan: Due to GI losses. Repeat K today is 4.6. Discussed she can discontinue the KCl supplement. Advised to resume HCTZ (3) Cervical radiculopathy: Comment: January 2021 Code(s): M54.12 - Radiculopathy, cervical region Plan: Secondary to cervical spinal muscle spasm related to syncopal fall. No weakness. Recommend ibuprofen and tylenol. Can use heat as well. Offered referral to physical therapy but patient declined. She will continue home gentle stretches at home. (4) Gastroenteritis: Code(s): K52.9 - Noninfective gastroenteritis and colitis, unspecified (5) Hypertension: Code(s): I10 - Essential (primary) hypertension Qualifiers: Hypertension type: essential hypertension Qualified Code(s): I10 - Essential (primary) hypertension Plan: Uncontrolled with BP 182/80 on recheck. Advised to resume HCTZ 25mg daily given normalization of potassium levels. Continue losartan 100mg and metoprolol 25mg ER daily. Will also check BP at home. Follow up with [facility] for BP recheck on 08/01. Orders: Orders Basic Metabolic Panel 07/17/23 E87.6 - Hypokalemia, M54.12 - Radiculopathy, cervical region, R55 - Syncope and collapse Patient Instructions: Check BMP today. If K normal, resume Hydrochlorothiazide. SChedule RN follow up in 1-2 weeks. Coding Level of Care Code Est Pt Level 4 (87122) Diagnoses Syncope R55 Hypokalemia E87.6 Cervical radiculopathy M54.12 Gastroenteritis K52.9 Essential hypertension I10 Hypertension type: essential hypertension Additional Codes PHQ-9 - 14199 - PHQ-9 Billing: ([id number])
== END 2023-07-17 13:59 | disposition home or self-care (01) ==
PROVIDERS: PCP Internal Medicine; Visit Provider Physician Assistant
DX: R55 Syncope and collapse (principal); E87.6 Hypokalemia; M54.12 Radiculopathy, cervical region; K52.9 Noninfective gastroenteritis and colitis, unspecified; I10 Essential (primary) hypertension
CPT/HCPCS: 99214

== ENCOUNTER 2023-07-17 14:05 | Outpatient (REF) | payer MEDICARE, SELFPAY ==
[2023-07-17 15:42] LABS: Anion Gap 11 (12-20); Blood Urea Nitrogen 11 mg/dL (9-16); Calcium 9.8 mg/dL (8.4-10.2); Carbon Dioxide 27 mmol/L (22-29); Chloride 101 mmol/L (96-108); Estimated Glomerular Filt Rate > 60; Glucose Random 92 mg/dL (60-115); Potassium 4.6 mmol/L (3.3-5.1); Sodium 134 mmol/L (135-145)
== END 2023-07-17 14:06 | disposition home or self-care (01) ==
LOC: HO.LAB 14:05
PROVIDERS: PCP Internal Medicine; Visit Provider Physician Assistant
DX: E87.6 Hypokalemia (principal); M54.12 Radiculopathy, cervical region; R55 Syncope and collapse
CPT/HCPCS: 36415; 80048

== ENCOUNTER 2023-08-19 10:53 | Outpatient (AMB) | payer MEDICARE, SELFPAY ==
[2023-08-19 10:55] VITALS: BP 150/66; PULSE 88; O2SAT 100; BMI 28.1
--- NOTE | 2023-08-19 10:56 | A.OFFPC_ITS ---
Vital Signs 08/19/23 10:55 Height 5 ft Weight 144 lb 0.4 oz BMI 28.1 BP 150/66 H Blood Pressure Location Lt brachial Position Sitting Pulse 88 Pulse Source Pulse Oximeter Pulse Oximetry (%) 100 Oxygen Delivery Method Room Air Intake Visit Reasons: Hypertension Household Cook Required: No Allergies lisinopril Allergy (Unknown, Verified 08/19/23 10:56) Unknown amlodipine Adverse Reaction (Intermediate, Verified 08/19/23 10:56) leg swelling Medication List - Last Reconciled 08/19/23 by Devin Reina MD atorvastatin 10 mg PO DAILY hydrochlorothiazide 25 mg PO QAM latanoprost 0.005% (Xalatan) 1 drp ophthalmic (eye) DAILY losartan 100 mg PO DAILY 90 days metoprolol succinate ER 50 mg PO DAILY 90 days vitamins A,C,O-bruf-vjxjon 2,148 mcg-113 mg-45 mg-17.4mg (PreserVision AREDS) 1 tab PO BID Tobacco use date assessed: 08/19/23 Fall risk assessment: No Falls in past year Last assessed Fall Risk: 08/19/23 HPI Hypertension HPI Details 83-year-old overweight female with hyper tension hypercholesterolemia GERD coming in for follow-up. Patient's colonoscopy is up-to-date mammogram is 2. Bone density is due also.. Patient was seen by the nurse practitioner in July 2023 ER visit for had nausea and vomiting from Ozempic found the having hypokalemia . has ozempic under son-felt chills and did not feels good- did pass out- no ER visit at that time, on waking up ER visit- potassium low- was given nausea med. ER visit again due to vomiting. COUNT INCLUDES [facility] Medical History Breast cancer screening by mammogram Obesity (BMI 30.0-34.9) Overweight (BMI 25.0-29.9) Ulnar neuropathy Anxiety and depression Hypercholesterolemia Vitamin D deficiency Lumbar degenerative disc disease GERD (gastroesophageal reflux disease) Hypertension Surgical History History of carpal tunnel surgery History of lumbar surgery History of left oophorectomy History of D&C History of tonsillectomy Family History Father No problems noted. Mother Cancer Hypertension Brother In good health Son In good health Son In good health Social History Housing: House Alcohol intake: current Alcohol intake frequency: a few times a week Patient Tobacco Use Status: Never used Tobacco e-Cigarette/Vaping Use: Never Used Second Hand Smoke Exposure: No service: No Current occupational status: retired Cognitive needs: Yes Hearing needs: Yes (hearing aide) Vision needs: Yes (glasses) Questionnaire Thrive Questionnaire Date Thrive assessed: 07/17/23 AUDIT C Alcohol Use Questionnaire (AUDIT-C) 1. How often do you have a drink containing alcohol?: Monthly or less 2. How many drinks containing alcohol do you have on a typical day when you are drinking?: 1 or 2 3. How often do you have six or more drinks on one occasion?: Never Total Score: 1 LORA-7 AMB Questionnaire LORA-7 Date LORA - 7 assessed: 07/17/23 Source: Developed by Drs. Ag Disla, Ruam Bowen, Chico Garza and colleagues, with an educational emil from [employer]. Physical exam (Primary Care) Vital Signs: Last Vital Signs Pulse 88 08/19/23 10:55 BP 150/66 H 08/19/23 10:55 Pulse Ox 100 08/19/23 10:55 Oxygen Delivery Method Room Air 08/19/23 10:55 BMI result Body Mass Index 28.1 Tobacco/Smoking Status: Tobacco use Status Tobacco use date assessed 08/19/23 08/19/23 10:56 Patient Tobacco Use Status Never used Tobacco 08/19/23 10:56 e-Cigarette/Vaping Use Never Used 08/19/23 10:56 Thrive Assessment: Date of Thrive Assessment Date Thrive assessed 07/17/23 08/19/23 10:56 Const General: alert; No acute distress Eyes Conjunctivae: conjunctivae normal Resp Auscultation: clear to auscultation bilaterally Cardio Rate: regular rate Rhythm: regular rhythm GI Inspection: Yes normal to inspection Extrem General: Yes normal to inspection and No edema Assessment and Plan Assessment & Plan (1) Breast cancer screening by mammogram: Code(s): Z12.31 - Encounter for screening mammogram for malignant neoplasm of breast Plan: Reminded about mammogram (2) Osteopenia: Comment: Bone density June 2021 Code(s): M85.80 - Other specified disorders of bone density and structure, unspecified site Plan: Patient is reminded about bone density (3) Overweight (BMI 25.0-29.9): Code(s): E66.3 - Overweight Plan: Diet and exercise (4) GERD (gastroesophageal reflux disease): Code(s): K21.9 - Gastro-esophageal reflux disease without esophagitis Qualifiers: Esophagitis presence: without esophagitis Qualified Code(s): K21.9 - Gastro-esophageal reflux disease without esophagitis Plan: Avoid the foods that causes that usually spicy foods, tomato products, juices, coffee, soda and foods that your sensitive to. After eating do not lie down, allow 3-4 hours before in lie down. And keep the head of bed above 30 degrees to avoid the acid from going up. (5) Hypercholesterolemia: Code(s): E78.00 - Pure hypercholesterolemia, unspecified Plan: Avoid fried foods, chicken skin, eggs, butter margarine, pastries and meat. Be it pork or beef they have a lot of cholesterol LDL goal of less than 130 and triglyceride of less than 150. Patient on atorvastatin 10 mg once a day (6) Hypertension: Code(s): I10 - Essential (primary) hypertension Qualifiers: Hypertension type: essential hypertension Qualified Code(s): I10 - Essential (primary) hypertension Plan: Continue with blood pressure medication. Decrease salt intake and exercise presently taking hydrochlorothiazide 25 mg losartan 100 mg once a day metoprolol 25 mg once a day. Ultrasound done negative renal artery stenosis does have a right smaller kidney. (7) Cataract: Code(s): H26.9 - Unspecified cataract Plan: will be seeing Dr. Valentine for possible surgery Orders: Orders Free T4 (Free Thyroxine) Today I10 - Essential (primary) hypertension Thyroid Stimulating Hormone Today I10 - Essential (primary) hypertension Vitamin D 25-OH Total Today I10 - Essential (primary) hypertension XR DEXA axial skeleton Today M81.0 - Age-related osteoporosis without current p athological fracture, M85.80 - Other specified disorders of bone density and structure, unspecified site Complete Blood Count Auto Diff Today I10 - Essential (primary) hypertension Comprehensive Met. Panel Today I10 - Essential (primary) hypertension Lipid Panel Today E78.00 - Pure hypercholesterolemia, unspecified, I10 - Essential (primary) hypertension Vitamin B12 and Folate Today I10 - Essential (primary) hypertension MM tomosynthesis screening BI Today Z12.31 - Encounter for screening mammogram for malignant neoplasm of breast Medications: Changed From metoprolol succinate ER 25 mg PO DAILY 90 days 90 tabs 3RF I10 - Essential (primary) hypertension To metoprolol succinate ER 50 mg PO DAILY 90 days 90 tabs 3RF I10 - Essential (primary) hypertension Coding Level of Care Code Est Pt Level 4 (15997) Diagnoses Breast cancer screening by mammogram Z12.31 Osteopenia M85.80 Overweight (BMI 25.0-29.9) E66.3 Gastroesophageal reflux disease without esophagitis K21.9 Esophagitis presence: without esophagitis Hypercholesterolemia E78.00 Essential hypertension I10 Hypertension type: essential hypertension Cataract H26.9
== END 2023-08-19 11:26 | disposition home or self-care (01) ==
PROVIDERS: PCP Internal Medicine; Visit Provider Internal Medicine
DX: Z12.31 Encounter for screening mammogram for malignant neoplasm of breast (principal); M85.80 Other specified disorders of bone density and structure, unspecified site; E66.3 Overweight; K21.9 Gastro-esophageal reflux disease without esophagitis; E78.00 Pure hypercholesterolemia, unspecified; I10 Essential (primary) hypertension; H26.9 Unspecified cataract
CPT/HCPCS: 99214

== ENCOUNTER 2023-10-28 08:36 | Outpatient (REF) | payer MEDICARE, SELFPAY ==
[2023-10-28 08:49] LABS: MANUAL DIFF FLAG NO
[2023-10-28 09:08] LABS: Basophils Absolute Auto 0.1 X10*3/uL (0.0-0.2); Basophils Percent Auto 0.6 % (0-2); Eosinophils Absolute Auto 0.2 X10*3/uL (0.0-0.4); Eosinophils Percent Auto 1.9 % (0-4); Hematocrit 37.7 % (37.0-47.0); Hemoglobin 12.9 g/dl (12.0-16.0); Imm Gran Abs Auto 0.02 X10*3/uL (0.00-0.03); Imm Gran Pct Auto 0.2 % (0.0-0.4); Lymphocytes Absolute Auto 3.1 X10*3/uL (1.2-4.9); Lymphocytes Percent Auto 34.6 % (20-40); Mean Corpuscular HGB Conc 34.2 g/dl (31.0-35.0); Mean Corpuscular Hemoglobin 32.4 pg (27.0-33.0); Mean Corpuscular Volume 94.7 fL (80.0-98.0); Mean Platelet Volume 9.5 fL (9.4-12.3); Monocytes Absolute Auto 0.8 X10*3/uL (0.1-1.2); Monocytes Percent Auto 8.9 % (2-11); Neutrophils Absolute Auto 4.8 x10*3/uL (2.0-8.3); Neutrophils Percent Auto 53.8 % (45-73); Platelet Count 221 X10*3/uL (160-400); Red Blood Count 3.98 X10*6/uL (4.20-5.50); Red Cell Distribution Width 11.9 % (11.0-16.0); White Blood Count 8.9 X10*3/uL (4.8-10.8)
[2023-10-28 09:55] LABS: Alanine Aminotransferase 18 U/L (0-31); Albumin Level 4.1 g/dL (3.5-5.0); Alkaline Phosphatase 92 U/L (39-117); Anion Gap 14 (12-20); Aspartate Amino Transferase 21 U/L (5-31); Bilirubin Total 0.6 mg/dL (0.0-1.0); Blood Urea Nitrogen 17 mg/dL (9-16); Carbon Dioxide 28 mmol/L (22-29); Chloride 100 mmol/L (96-108); Cholesterol 193 mg/dL (<200); Estimated Glomerular Filt Rate > 60; Glucose Random 109 mg/dL (60-115); HDL Cholesterol 58 mg/dL (>40); LDL Cholesterol Calculated 105 mg/dL (<100); Potassium 3.8 mmol/L (3.3-5.1); Sodium 138 mmol/L (135-145); Total Protein 6.8 g/dL (6.5-8.0); Triglycerides 151 mg/dL (<150)
[2023-10-28 10:14] LABS: Free T4 (Free Thyroxine) 0.79 ng/dL (0.71-1.85); Thyroid Stimulating Hormone 3.03 uIU/mL (0.32-4.0); Vitamin D 25-OH Total 20.1 ng/mL (>30)
[2023-10-28 10:49] LABS: Folate 9.1 ng/mL (> or = 4.0); Vitamin B12 337 pg/mL (200-900)
== END 2023-10-28 08:37 | disposition home or self-care (01) ==
LOC: HO.LAB 08:36
PROVIDERS: PCP Internal Medicine; Visit Provider Internal Medicine
DX: I10 Essential (primary) hypertension (principal); E78.00 Pure hypercholesterolemia, unspecified
CPT/HCPCS: 36415; 80053; 80061; 82306; 82607; 82746; 84439; 84443; 85025

== ENCOUNTER 2023-11-20 10:20 | Outpatient (AMB) | payer MEDICARE, SELFPAY ==
[2023-11-20 10:55] VITALS: BP 158/92; PULSE 77; O2SAT 98; BMI 28.5
--- NOTE | 2023-11-20 10:55 | MHC.PC.OV ---
Vital Signs 11/20/23 10:55 Height 5 ft Weight 146 lb BMI 28.5 BP 158/92 H Blood Pressure Location Lt brachial Position Sitting Pulse 77 Pulse Source Pulse Oximeter Pulse Oximetry (%) 98 Oxygen Delivery Method Room Air Intake Visit Reasons: cataract surgery 12/10 Allergies lisinopril Allergy (Unknown, Verified 08/19/23 10:56) Unknown amlodipine Adverse Reaction (Intermediate, Verified 08/19/23 10:56) leg swelling Medication List - Last Reconciled 11/20/23 by Devin Reina MD atorvastatin 10 mg PO DAILY hydrochlorothiazide 25 mg PO QAM latanoprost 0.005% (Xalatan) 1 drp ophthalmic (eye) DAILY losartan 100 mg PO DAILY 90 days metoprolol succinate ER 50 mg PO DAILY 90 days vitamins A,C,F-jllg-kfawys 2,148 mcg-113 mg-45 mg-17.4mg (PreserVision AREDS) 1 tab PO BID Tobacco use date assessed: 08/19/23 Fall risk assessment: No Falls in past year Last assessed Fall Risk: 11/20/23 Dental Screening Dental Screen Date: 11/20/23 Did you have a dental visit in the last 12 months?: Yes Did you have a dental problem in the last 6 months where you did not have access to dental care?: No Was dental information given to patient?: Patient has dentist HPI cataract surgery 12/10 HPI Details 83-year-old overweight female with a history of GERD hypercholesterolemia hypertension last seen in 08/28/2023 patient was advised to get mammogram done and bone density. Patient also was following up with Ophthalmology for cataracts. Patient is for cataract surgery in December 10/2024 BP at home is good as per patient. activity, walking complains of [facility] Medical History Breast cancer screening by mammogram Obesity (BMI 30.0-34.9) Overweight (BMI 25.0-29.9) Ulnar neuropathy Anxiety and depression Hypercholesterolemia Vitamin D deficiency Lumbar degenerative disc disease GERD (gastroesophageal reflux disease) Hypertension Surgical History History of carpal tunnel surgery History of lumbar surgery History of left oophorectomy History of D&C History of tonsillectomy Family History Father No problems noted. Mother Cancer Hypertension Brother In good health Son In good health Son In good health Social History (Updated 11/20/23 @ 11:26 by Devin Reina MD) Housing: House Alcohol intake: current Alcohol intake frequency: a few times a week Comment: 5 days a week 2 glasses Patient Tobacco Use Status: Never used Tobacco e-Cigarette/Vaping Use: Never Used Second Hand Smoke Exposure: No service: No Current occupational status: retired Cognitive needs: Yes Hearing needs: Yes (hearing aide) Vision needs: Yes (glasses) Questionnaire PHQ-9 Over the last 2 weeks, how often have you been bothered by any of the following problems? 1. Little interest or pleasure in doing things: not at all 2. Feeling down, depressed, or hopeless: not at all 3. Trouble falling or staying asleep, or sleeping too much: not at all 4. Feeling tired or having little energy: not at all 5. Poor appetite or overeating: not at all 6. Feeling bad about yourself - or that you are a failure or have let yourself or your family down: not at all 7. Trouble concentrating on things, such as reading the newspaper or watching television: not at all 8. Moving or speaking so slowly that other people could have noticed. Or the opposite - being so fidgety or restless that you have been moving around a lot more than usual: not at all 9. Thoughts that you would be better off or of hurting yourself in some way: not at all Total score: 0 Depression Screening Interpretation: Negative Depression Screening Done: Yes Source: Developed by Drs. Ag Disla, Ruma Bowen, Chico Garza and colleagues, with an educational emil from [employer]. Thrive Questionnaire Date Thrive assessed: 07/17/23 AUDIT C Alcohol Use Questionnaire (AUDIT-C) 1. How often do you have a drink containing alcohol?: Monthly or less 2. How many drinks containing alcohol do you have on a typical day when you are drinking?: 1 or 2 3. How often do you have six or more drinks on one occasion?: Never Total Score: 1 LORA-7 AMB Questionnaire LORA-7 Date LORA - 7 assessed: 07/17/23 Source: Developed by Drs. Ag Disla, Ruma Bowen, Chico Garza and colleagues, with an educational emil from [employer]. Review of Systems Const Denies poor appetite and Denies weakness Eyes Denies no additional complaints ENT Reports Normal hearing present, Denies dizziness, Denies nasal congestion, Denies tinnitus and Denies sore throat Card Denies chest pain, Denies syncope, Denies rapid heart rate and Denies dyspnea Resp Denies cough and Denies dyspnea GI Denies change in stool character, Reports constipation, Denies diarrhea, Denies nausea and Denies vomiting Denies urinary frequency, Denies difficulty voiding and Denies dysuria Neuro Reports Normal hearing present, Denies confusion, Denies dizziness, Denies syncope and Denies weakness Psych Denies confusion Physical exam (Primary Care) Vital Signs: Last Vital Signs Pulse 77 11/20/23 10:55 BP 158/92 H 11/20/23 10:55 Pulse Ox 98 11/20/23 10:55 Oxygen Delivery Method Room Air 11/20/23 10:55 BMI result Body Mass Index 28.5 Tobacco/Smoking Status: Tobacco use Status Tobacco use date assessed 08/19/23 11/20/23 11:01 Patient Tobacco Use Status Never used Tobacco 11/20/23 11:01 e-Cigarette/Vaping Use Never Used 11/20/23 11:01 PHQ-9: PHQ-9 Score PHQ-9: Total score 0 11/20/23 11:01 Depression Screening Interpretation: Negative Thrive Assessment: Date of Thrive Assessment Date Thrive assessed 07/17/23 11/20/23 11:01 Const General: No confusion Orientation/consciousness: No confusion Eyes Conjunctivae: conjunctivae normal Resp Auscultation: clear to auscultation bilaterally Cardio Rate: regular rate Rhythm: regular rhythm GI Inspection: Yes normal to inspection Neuro General: No confusion Cranial nerves: Yes Normal hearing present Extrem General: Yes normal to inspection and No edema Assessment and Plan Assessment & Plan (1) Preop exam for internal medicine: Code(s): Z01.818 - Encounter for other preprocedural examination Plan: blood work done 10/2023 with age, belongs to intermediate risk category. take the BP meds losartan and metoprolol prior to the procedure . No further workup needed at this time and may proceed with the contemplated procedure. Thank you very much for letting me participate in the care of this patient. (2) Hypertension: Code(s): I10 - Essential (primary) hypertension Qualifiers: Hypertension type: essential hypertension Qualified Code(s): I10 - Essential (primary) hypertension Plan: Continue with blood pressure medication. Decrease salt intake and exercise on hydrochlorothiazide 25 mg once a day losartan 100 mg once a day and metoprolol 50 mg once a day (3) Hypercholesterolemia: Code(s): E78.00 - Pure hypercholesterolemia, unspecified Plan: Avoid fried foods, chicken skin, eggs, butter margarine, pastries and meat. Be it pork or beef they have a lot of cholesterol (4) GERD (gastroesophageal reflux disease): Code(s): K21.9 - Gastro-esophageal reflux disease without esophagitis Qualifiers: Esophagitis presence: without esophagitis Qualified Code(s): K21.9 - Gastro-esophageal reflux disease without esophagitis Plan: Avoid the foods that causes that usually spicy foods, tomato products, juices, coffee, soda and foods that your sensitive to. After eating do not lie down, allow 3-4 hours before in lie down. And keep the head of bed above 30 degrees to avoid the acid from going up. (5) Cataract: Code(s): H26.9 - Unspecified cataract Orders: Orders XR lumbar spine 2-3V Today M51.36 - Other intervertebral disc degeneration, lumbar region Coding Level of Care Code Est Pt Level 4 (17923) Diagnoses Preop exam for internal medicine Z01.818 Essential hypertension I10 Hypertension type: essential hypertension Hypercholesterolemia E78.00 Gastroesophageal reflux disease without esophagitis K21.9 Esophagitis presence: without esophagitis Cataract H26.9 Additional Codes PHQ-9 - 43119 - PHQ-9 Billing: ([id number])
== END 2023-11-20 11:39 | disposition home or self-care (01) ==
PROVIDERS: PCP Internal Medicine; Visit Provider Internal Medicine
DX: I10 Essential (primary) hypertension (principal); Z01.818 Encounter for other preprocedural examination; E78.00 Pure hypercholesterolemia, unspecified; K21.9 Gastro-esophageal reflux disease without esophagitis; H26.9 Unspecified cataract
CPT/HCPCS: 99214

== ENCOUNTER 2023-11-22 15:50 | Outpatient (REF) | payer MEDICARE, SELFPAY ==
--- NOTE | ~2023-11-22 | XR_ITS ---
EXAMINATION: XR LUMBOSACRAL SPINE CLINICAL INFORMATION: Back pain COMPARISON: 12/28/2015 TECHNIQUE: Three views of the lumbosacral spine. FINDINGS: There is mild levoscoliosis of lumbar spine with 5 not ribs bearing vertebral bodies and grade 1 anterior listhesis of L4 over L5. There is facets arthropathy at the level of L4-L5 and L5-S1. Sacroiliac joints are unremarkable. XR/XR lumbar spine 2-3V IMPRESSION: Degenerative changes in lower lumbar spine more prominent at the level of L4-L5 and facets arthropathy.
== END 2023-11-22 15:51 | disposition home or self-care (01) ==
LOC: HO.XRAY 15:50
PROVIDERS: PCP Internal Medicine; Visit Provider Internal Medicine
DX: M51.36 Other intervertebral disc degeneration, lumbar region (principal)
CPT/HCPCS: 72100

== ENCOUNTER 2023-12-17 11:25 | Outpatient (REF) | payer MEDICARE, SELFPAY ==
--- NOTE | ~2023-12-17 | MM_ITS ---
EXAMINATION: BONE DENSITOMETRY CLINICAL INDICATION: Age-related osteoporosis without current pathological fracture. COMPARISON: Previous BD dated 06/30/2021 and baseline BD dated 02/13/2019. TECHNIQUE: Using a [employer] DXA System (software version: 13.1) manufactured by [employer], dual-energy x-ray absorptiometry was performed of the lumbar spine and left hip. The images are of good technical quality. Summary results are attached. FINDINGS: LEFT FEMUR, NECK: Current: BMD 0.731 g/cm2, Z-score 0.0, T-score -2.2, osteopenia. Prior: BMD 0.762 g/cm2. Baseline: BMD 0.795 g/cm2. LEFT FEMUR, TOTAL: Current: BMD 0.892 g/cm2, Z-score 1.2, T-score -0.9, normal, 3.5% decrease from previous, 3.1% decrease from baseline (<5% change is not significant). Prior: BMD 0.924 g/cm2. Baseline: BMD 0.921 g/cm2. AP SPINE L1-L2 (excluding L3 and L4): The data of L1-L4 has been changed to exclude the L3 and L4 vertebral bodies, because degenerative sclerosis at these levels may cause overestimation of lumbar spine density. Current: BMD 1.133 g/cm2, Z-score 1.6, T-score -0.3, normal, 0.7% decrease from previous, 0.2% increase from baseline (<5% change is not significant). Prior: BMD 1.141 g/cm2. Baseline: BMD 1.131 g/cm2. IDENTIFIED RISK FACTORS: Menopause, alcohol (3 or more units per day), history of fracture (adult), left oophorectomy, low calcium intake, thiazide. HISTORY OF FRACTURE: Wrist. MEDICATIONS: None listed. MM/XR DEXA axial skeleton IMPRESSION: 1. DIAGNOSIS: Osteopenia based on the lowest T-score value of -2.2 in the femoral neck applying World Health Organization criteria. 2. 10-YEAR FRACTURE RISK PREDICTION, FRAX: Major osteoporotic fracture (clinical spine, forearm, hip or shoulder) 29.0%. Hip fracture 10.9%. 3. Treatment Recommendations: NOF guidelines recommend consideration for treatment in postmenopausal women and men age 50 and older presenting with the following: -A hip or vertebral (clinical or morphometric) fracture. -T-score less than or equal to -2.5 at the femoral neck or spine after appropriate evaluation to exclude secondary causes. -Low bone mass at the hip or spine and a 10-year fracture probability by FRAX of greater than or equal to 3% for hip fracture or greater than or equal to 20% for major osteoporotic fracture based on the [place] adapted WHO algorithm. 4. Other Recommendations: All treatment decisions require clinical judgment and consideration of individual patient factors, including patient preferences, comorbidities, previous drug use, risk factors not captured in the FRAX model (e.g. frailty, falls, vitamin D deficiency, increased bone turnover, interval significant decline in bone density) and possible under or overestimation of fracture risk by FRAX. Additional medical evaluation for secondary cause of low bone mineral density may be appropriate. FUTURE SCAN RECOMMENDATION: People with diagnosed cases of osteoporosis or at high risk for fracture should have regular bone mineral density tests. For patients eligible for Medicare, routine testing is allowed once every 2 years. The testing frequency can be increased to one year for patients who have rapidly progressing disease, those who are receiving or discontinuing medical therapy to restore bone mass, or have additional risk factors.
== END 2023-12-17 11:26 | disposition home or self-care (01) ==
LOC: HO.MAMMO 11:25
PROVIDERS: PCP Internal Medicine; Visit Provider Internal Medicine
DX: M81.0 Age-related osteoporosis without current pathological fracture (principal); M85.80 Other specified disorders of bone density and structure, unspecified site; Z78.0 Asymptomatic menopausal state
CPT/HCPCS: 77080

== ENCOUNTER 2024-05-06 11:32 | Outpatient (AMB) | payer MEDICARE, SELFPAY ==
[2024-05-06 11:41] VITALS: BP 142/80; PULSE 65; O2SAT 98; BMI 29.7
--- NOTE | 2024-05-06 11:41 | AM.OFFVISMDC ---
Intake Vital Signs 05/06/24 11:41 Height 5 ft Weight 152 lb BMI 29.7 BP 142/80 H Blood Pressure Location Lt brachial Position Sitting Pulse 65 Pulse Source Pulse Oximeter Pulse Oximetry (%) 98 Oxygen Delivery Method Room Air Intake Visit Reasons: V [id number] Allergies lisinopril Allergy (Unknown, Verified 05/06/24 11:41) Unknown amlodipine Adverse Reaction (Intermediate, Verified 05/06/24 11:41) leg swelling Medication List - Last Reconciled 05/06/24 by Devin Reina MD atorvastatin 10 mg PO DAILY hydrochlorothiazide 25 mg PO QAM latanoprost 0.005% (Xalatan) 1 drp ophthalmic (eye) DAILY losartan 100 mg PO DAILY 90 days metoprolol succinate ER 50 mg PO DAILY 90 days vitamins A,C,R-xwbd-zdwdza 2,148 mcg-113 mg-45 mg-17.4mg (PreserVision AREDS) 1 tab PO BID HPI SWV G0439 HPI Details 84-year-old overweight female noted 6 lb weight gain with hypertension hypercholesterolemia GERD last seen for preop 11/28/2023 for cataract surgery. Patient is here for annual well visit. Colonoscopy 2014 mammogram September 2023 bone density December 2023. Bone density osteopenia no change. As for x-rays of the lower spine lumbar degenerative changes more prominent L4-L5 with arthropathy. Patient sees Dr. Dianne Gallagher for cataract surgery Orthopedics Dr. Lee BP here is high but at home is high [facility] Medical History (Updated 05/06/24 @ 12:02 by Devin Reina MD) Breast cancer screening by mammogram Obesity (BMI 30.0-34.9) Overweight (BMI 25.0-29.9) Ulnar neuropathy Anxiety and depression Hypercholesterolemia Vitamin D deficiency Lumbar degenerative disc disease GERD (gastroesophageal reflux disease) Hypertension Surgical History History of carpal tunnel surgery History of lumbar surgery History of left oophorectomy History of D&C History of tonsillectomy Family History Father No problems noted. Mother Cancer Hypertension Brother In good health Son In good health Son In good health Social History (Updated 11/20/23 @ 11:26 by CAR [place] Housing: House Alcohol intake: current Alcohol intake frequency: a few times a week Comment: 5 days a week 2 glasses Patient Tobacco Use Status: Never used Tobacco e-Cigarette/Vaping Use: Never Used Second Hand Smoke Exposure: No service: No Current occupational status: retired Cognitive needs: Yes Hearing needs: Yes (hearing aide) Vision needs: Yes (glasses) Questionnaire Medicare Wellness Checkup What is your age?: 80 or older What gender do you identify with?: female During the past 4 weeks, how much have you been bothered by emotional problems such as feeling anxious, depressed, irritable, sad or downhearted, and blue?: not at all During the past 4 weeks, has your physical & emotional health limited your social activities with family, friends, neighbors, or groups?: not at all During the past 4 weeks, how much bodily pain have you generally had?: moderate pain During the past 4 weeks, was someone available to help you if you needed & wanted help?: yes, as much as I wanted During the past 4 weeks, what was the hardest physical activity you could do for at least 2 minutes?: moderate Can you get to places out of walking distance without help? (For eg., can you travel alone on buses, taxis or drive your car?): Yes Can you go shopping for groceries or clothes without someone's help?: Yes Can you prepare your own meals?: Yes Can you do your housework without help?: Yes Because of any health problems, do you need the help of another person with your personal care needs such as eating, bathing, dressing or getting around the house?: No Can you handle your own money without help?: Yes During the past 4 weeks, how would you rate your health in general?: very good During the past 4 weeks how have things been going for you?: very well; could hardly better Are you having difficulties driving your car?: not applicable, I don't use a car Do you always fasten your seat belt when you are in a car?: yes, usually During past 4 weeks, have you been bothered by the following: never: Falling or dizzy when standing up, Sexual problems?, Trouble eating well?, Teeth or denture problems?, Problems using the telephone? and Tiredness or fatigue? Have you fallen 2 or more times in the past year?: No Are you afraid of falling?: No Are you a smoker?: no During the past 4 weeks, how many drinks of wine, beer, or other alcoholic beverages did you have?: 2-5 drinks per week Do you exercise for about 20 minutes 3 or more times a week?: yes, some of the time Have you been given information to help with the following?: no: Hazards in your house that might hurt you? and no: Keeping track of your medications? How often do you have trouble taking medicines the way you have been told to take them?: I always take medicine as prescribed How confident are you that you can control & manage most of your health problems?: very confident What is your race?: White PHQ-9 Over the last 2 weeks, how often have you been bothered by any of the following problems? 1. Little interest or pleasure in doing things: not at all 2. Feeling down, depressed, or hopeless: not at all 3. Trouble falling or staying asleep, or sleeping too much: not at all 4. Feeling tired or having little energy: not at all 5. Poor appetite or overeating: not at all 6. Feeling bad about yourself - or that you are a failure or have let yourself or your family down: not at all 7. Trouble concentrating on things, such as reading the newspaper or watching television: not at all 8. Moving or speaking so slowly that other people could have noticed. Or the opposite - being so fidgety or restless that you have been moving around a lot more than usual: not at all 9. Thoughts that you would be better off or of hurting yourself in some way: not at all Total score: 0 Depression Screening Interpretation: Negative Depression Screening Done: Yes Source: Developed by Drs. Ag Disla, Ruma Bowen, Chico Garza and colleagues, with an educational emil from [employer]. Thrive Questionnaire Date Thrive assessed: 07/17/23 LORA-7 AMB Questionnaire LORA-7 Date LORA - 7 assessed: 07/17/23 Source: Developed by Drs. Ag Disla, Ruma Bowen, Ch[place] Garza and colleagues, with an educational emil from [employer]. Review of Systems Const Denies poor appetite and Denies weakness Eyes Denies no additional complaints ENT Reports Normal hearing present, Denies dizziness, Denies nasal congestion, Denies tinnitus and Denies sore throat Card Denies chest pain, Denies syncope, Denies rapid heart rate and Denies dyspnea Resp Denies cough and Denies dyspnea GI Denies change in stool character, Reports constipation, Denies diarrhea, Denies nausea and Denies vomiting Denies urinary frequency, Denies difficulty voiding and Denies dysuria Neuro Reports Normal hearing present, Denies confusion, Denies dizziness, Denies syncope and Denies weakness Psych Denies confusion Physical Exam Vital Signs: Last Vital Signs Pulse 65 05/06/24 11:41 BP 142/80 H 05/06/24 11:41 Pulse Ox 98 05/06/24 11:41 Oxygen Delivery Method Room Air 05/06/24 11:41 BMI result Body Mass Index 29.7 Const General: No confusion Orientation/consciousness: No confusion HEENT Head: Yes normocephalic Ears: external ears normal and TM's normal bilaterally Face and sinus: Yes normal facial exam Mouth: moist mucous membranes Throat: Yes tonsils normal Eyes Conjunctivae: conjunctivae normal Pupils: Equal, round and reactive pupils present and Pupil accommodation reflex normal Direct Ophthalmoscopy: normal light reflex Neck Neck: No lymphadenopathy Thyroid: Thyroid normal Chest Chest palpation & inspection: normal inspection of the chest Resp Effort & Inspection: normal respiratory effort and no audible wheezes Auscultation: clear to auscultation bilaterally, no crackles, no wheezes and lung sounds not diminished Cardio Rate: regular rate Rhythm: regular rhythm Peripheral pulses: radial pulses present and dorsalis pedis present GI Other: guaic negative Palpation (GI): no masses Auscultation: normal bowel sounds and normoactive bowel sounds Skin General skin exam: no rashes or lesions noted Rashes: no rashes Neuro General: No confusion Cranial nerves: Yes Equal, round and reactive pupils present and Yes Normal hearing present Cognition (Neuro): normal cognition Gait exam (Neuro): Normal gait present Motor exam (neuro): 5/5 motor strength present throughout Deep tendon reflexes (DTR's): Right brachioradialis reflex intensity grade: 2+, Left brachioradialis reflex intensity grade: 2+, Right patellar reflex intensity grade: 2+ and Left patellar reflex intensity grade: 2+ Extrem General: No edema Assessment & Plan Assessment & Plan (1) Medicare annual wellness visit, subsequent: Code(s): Z00.00 - Encounter for general adult medical examination without abnormal findings Plan: Patient is advised to eat healthy, keep well hydrated, keep active and have adequate sleep. (2) GERD (gastroesophageal reflux disease): Code(s): K21.9 - Gastro-esophageal reflux disease without esophagitis Qualifiers: Esophagitis presence: without esophagitis Qualified Code(s): K21.9 - Gastro-esophageal reflux disease without esophagitis Plan: Avoid the foods that causes that usually spicy foods, tomato products, juices, coffee, soda and foods that your sensitive to. After eating do not lie down, allow 3-4 hours before in lie down. And keep the head of bed above 30 degrees to avoid the acid from going up. (3) Hypercholesterolemia: Code(s): E78.00 - Pure hypercholesterolemia, unspecified Plan: Avoid fried foods, chicken skin, eggs, butter margarine, pastries and meat. Be it pork or beef they have a lot of cholesterol LDL goal of less than 130 and triglyceride of less than 150 on atorvastatin 10 mg once a day (4) Hypertension: Code(s): I10 - Essential (primary) hypertension Qualifiers: Hypertension type: essential hypertension Qualified Code(s): I10 - Essential (primary) hypertension Plan: Continue with blood pressure medication. Decrease salt intake and exercise patient is on hydrochlorothiazide 25 mg once a day losartan 100 mg once a day metoprolol 50 mg once a day (5) Lumbar degenerative disc disease: Code(s): M51.36 - Other intervertebral disc degeneration, lumbar region Qualifiers: Disc-related pain type: discogenic back pain only Qualified Code(s): M51.360 - Other intervertebral disc degeneration, lumbar region with discogenic back pain only Plan: Keep active, keep well hydrated. Orders: Orders Lipid Panel Today E78.00 - Pure hypercholesterolemia, unspecified Vitamin B12 and Folate Today E78.00 - Pure hypercholesterolemia, unspecified Vitamin D 25-OH Total Today E78.00 - Pure hypercholesterolemia, unspecified Complete Blood Count Auto Diff Today E78.00 - Pure hypercholesterolemia, unspecified Comprehensive Met. Panel Today E78.00 - Pure hypercholesterolemia, unspecified Free T4 (Free Thyroxine) Today E78.00 - Pure hypercholesterolemia, unspecified Thyroid Stimulating Hormone Today E78.00 - Pure hypercholesterolemia, unspecified Hemoglobin A1c Today E78.00 - Pure hypercholesterolemia, unspecified Referrals Orthopedics Referral M51.360 - Other intervertebral disc degeneration, lumbar region with discogenic back pain only Medications: Changed From metoprolol succinate ER 50 mg PO DAILY 90 days 90 tabs 3RF I10 - Essential (primary) hypertension To metoprolol succinate ER 100 mg PO DAILY 90 days 90 tabs 3RF I10 - Essential (primary) hypertension Quality Reporting (2019) Depression/Bipolar (159/160/161/177) PHQ-9: Total score: 0 Coding Level of Care Code Medicare Subsequent (G0439) Diagnoses Medicare annual wellness visit, subsequent Z00.00 Gastroesophageal reflux disease without esophagitis K21.9 Esophagitis presence: without esophagitis Hypercholesterolemia E78.00 Essential hypertension I10 Hypertension type: essential hypertension Degeneration of intervertebral disc of lumbar region with discogenic back pain M51.360 Disc-related pain type: discogenic back pain only
== END 2024-05-06 12:24 | disposition home or self-care (01) ==
PROVIDERS: PCP Internal Medicine; Visit Provider Internal Medicine
DX: Z00.00 Encounter for general adult medical examination without abnormal findings (principal); K21.9 Gastro-esophageal reflux disease without esophagitis; E78.00 Pure hypercholesterolemia, unspecified; I10 Essential (primary) hypertension; M51.360 Other intervertebral disc degeneration, lumbar region with discogenic back pain only

== ENCOUNTER → 2024-05-06 11:32 | Outpatient (BNVA) | payer MEDICARE, SELFPAY | PROVIDERS: PCP Internal Medicine; Visit Provider Internal Medicine ==

== ENCOUNTER 2024-11-03 11:38 | Outpatient (AMB) | payer MEDICARE, SELFPAY ==
[2024-11-03 11:46] VITALS: BP 142/68; PULSE 67; O2SAT 95; BMI 30.3
--- NOTE | 2024-11-03 11:46 | MHC.PC.OV ---
Vital Signs 11/03/24 11:46 Height 5 ft Weight 155 lb BMI 30.3 BP 142/68 H Blood Pressure Location Lt brachial Position Sitting Pulse 67 Pulse Source Pulse Oximeter Pulse Oximetry (%) 95 Oxygen Delivery Method Room Air Intake Visit Reasons: Hypertension Allergies lisinopril Allergy (Unknown, Verified 11/03/24 11:46) Unknown amlodipine Adverse Reaction (Intermediate, Verified 11/03/24 11:46) leg swelling Medication List - Last Reconciled 11/03/24 by Devin Reina MD atorvastatin 10 mg PO DAILY hydrochlorothiazide 25 mg PO QAM latanoprost 0.005% (Xalatan) 1 drp ophthalmic (eye) DAILY losartan 100 mg PO DAILY 90 days metoprolol succinate ER 100 mg PO DAILY 90 days nifedipine ER 30 mg PO DAILY vitamins A,C,G-ozvd-kcxwmq 2,148 mcg-113 mg-45 mg-17.4mg (PreserVision AREDS) 1 tab PO BID Tobacco use date assessed: 11/03/24 Fall risk assessment: No Falls in past year Last assessed Fall Risk: 11/03/24 Dental Screening Dental Screen Date: 11/03/24 Did you have a dental visit in the last 12 months?: Yes Did you have a dental problem in the last 6 months where you did not have access to dental care?: No Was dental information given to patient?: Patient has dentist HPI Hypertension HPI Details Seen Dr. Salinas and advised no surgery for now and if symptoms occur - will advised to get PSS for shots, PFSH Medical History (Updated 11/03/24 @ 12:02 by Devin Reina MD) Breast cancer screening by mammogram Obesity (BMI 30.0-34.9) Overweight (BMI 25.0-29.9) Ulnar neuropathy Anxiety and depression Hypercholesterolemia Vitamin D deficiency Lumbar degenerative disc disease GERD (gastroesophageal reflux disease) Hypertension Surgical History History of carpal tunnel surgery History of lumbar surgery History of left oophorectomy History of D&C History of tonsillectomy Family History Father No problems noted. Mother Cancer Hypertension Brother In good health Son In good health Son In good health Social History (Updated 11/20/23 @ 11:26 by Devin Riena MD) Housing: House Alcohol intake: current Alcohol intake frequency: a few times a week Comment: 5 days a week 2 glasses Patient Tobacco Use Status: Never used Tobacco Tobacco use type: Cigarette e-Cigarette/Vaping Use: Never Used Second Hand Smoke Exposure: No service: No Current occupational status: retired Cognitive needs: Yes Hearing needs: Yes (hearing aide) Vision needs: Yes (glasses) Questionnaire PHQ-9 Over the last 2 weeks, how often have you been bothered by any of the following problems? 1. Little interest or pleasure in doing things: not at all 2. Feeling down, depressed, or hopeless: not at all 3. Trouble falling or staying asleep, or sleeping too much: not at all 4. Feeling tired or having little energy: not at all 5. Poor appetite or overeating: not at all 6. Feeling bad about yourself - or that you are a failure or have let yourself or your family down: not at all 7. Trouble concentrating on things, such as reading the newspaper or watching television: not at all 8. Moving or speaking so slowly that other people could have noticed. Or the opposite - being so fidgety or restless that you have been moving around a lot more than usual: not at all 9. Thoughts that you would be better off or of hurting yourself in some way: not at all Total score: 0 Depression Screening Interpretation: Negative Depression Screening Done: Yes Source: Developed by Drs. Ag Disla, Ruma Bowen, Chico Garza and colleagues, with an educational emil from [employer] Thrive Questionnaire Date Thrive assessed: 10/28/24 I am a: Patient What is your living situation today?: I have a steady place to live Within the past 12 months, did the food you bought not last and you didn't have the money to get more?: Never true Within the past 12 months, did you worry whether your food would run out before you got money to buy more?: Never true Do you have trouble paying for medicines?: No Do you have trouble getting transportation to medical appointments?: No Do you have trouble paying your heating and electricity bill?: No Do you have trouble taking care of your child, family member or friend?: No Do you have trouble with day-to-day activities such as bathing, preparing meals, shopping, managing finances, etc.?: No Are you currently unemployed and looking for a job?: No Are you interested in more education?: No Please select the resources that you would like help with: None Currently or been in a relationship where the following occur: No concerns reported THRIVE Score: 0 AUDIT C Alcohol Use Questionnaire (AUDIT-C) 1. How often do you have a drink containing alcohol?: 4 or more times a week 2. How many drinks containing alcohol do you have on a typical day when you are drinking?: 3 or 4 3. How often do you have six or more drinks on one occasion?: Less than monthly Total Score: 6 LORA-7 AMB Questionnaire LORA-7 Date LORA - 7 assessed: 11/03/24 Feeling nervous, anxious, or on edge: 0 = Not at all Not being able to stop or control worryin = Not at all Worrying too much about different things: 0 = Not at all Trouble relaxin = Not at all Being so restless that it is hard to sit still: 0 = Not at all Becoming easily annoyed or irritable: 0 = Not at all Feeling afraid as if something awful might happen: 0 = Not at all Total LORA-7 score (0-4 normal; 5-9 mild; 10-14 moderate; 15-21 severe): 0 Source: Developed by Drs. Ag Disla, Ruma Bowen, Chico Garza and colleagues, with an educational emil from [employer] Physical exam (Primary Care) Vital Signs: Last Vital Signs Pulse 67 11/03/24 11:46 BP 142/68 H 11/03/24 11:46 Pulse Ox 95 11/03/24 11:46 Oxygen Delivery Method Room Air 11/03/24 11:46 BMI result Body Mass Index 30.3 Tobacco/Smoking Status: Tobacco use Status Tobacco use date assessed 11/03/24 11/03/24 11:50 Patient Tobacco Use Status Never used Tobacco 11/03/24 11:50 Tobacco use type Cigarette 11/03/24 11:50 e-Cigarette/Vaping Use Never Used 11/03/24 11:50 PHQ-9: PHQ-9 Score PHQ-9: Total score 0 11/03/24 12:03 Depression Screening Interpretation: Negative Thrive Assessment: Date of Thrive Assessment Date Thrive assessed 10/28/24 11/03/24 11:50 Currently or been in a relationship where the following occur: No concerns reported Const General: alert; No acute distress Eyes Conjunctivae: conjunctivae normal Resp Auscultation: clear to auscultation bilaterally Cardio Rate: regular rate Rhythm: regular rhythm GI Inspection: Yes normal to inspection Extrem General: Yes normal to inspection and No edema Coding Level of Care Code Est Pt Level 4 (66700) Complex EM visit Add On G2211 Diagnoses Lumbar spinal stenosis M48.061 Impaired glucose tolerance R73.02 Essential hypertension I10 Hypertension type: essential hypertension Gastroesophageal reflux disease without esophagitis K21.9 Esophagitis presence: without esophagitis Hypercholesterolemia E78.00 Obesity (BMI 30-39.9) E66.9 Assessment & Plan Assessment & Plan (1) Lumbar spinal stenosis: Code(s): M48.061 - Spinal stenosis, lumbar region without neurogenic claudication Category: Medical Plan: Patient was seen by [facility] in June and was advised to be referred to the neurosurgeon (2) Impaired glucose tolerance: Code(s): R73.02 - Impaired glucose tolerance (oral) Category: Medical Plan: Decrease the amount of carbohydrate intake, pasta, bread, rice and potatoes are all sugar and that is aside from all the sweet stuff, remember that fruits are good but they are Sweet also. (3) Hypertension: Code(s): I10 - Essential (primary) hypertension Category: Medical Qualifiers: Hypertension type: essential hypertension Qualified Code(s): I10 - Essential (primary) hypertension Plan: Continue with blood pressure medication. Decrease salt intake and exercise on losartan 100 mg once a day metoprolol 100 mg once a day and hydrochlorothiazide 25 mg once a day (4) GERD (gastroesophageal reflux disease): Code(s): K21.9 - Gastro-esophageal reflux disease without esophagitis Category: Medical Qualifiers: Esophagitis presence: without esophagitis Qualified Code(s): K21.9 - Gastro-esophageal reflux disease without esophagitis Plan: Avoid the foods that causes that usually spicy foods, tomato products, juices, coffee, soda and foods that your sensitive to. After eating do not lie down, allow 3-4 hours before in lie down. And keep the head of bed above 30 degrees to avoid the acid from going up. (5) Hypercholesterolemia: Code(s): E78.00 - Pure hypercholesterolemia, unspecified Category: Medical Plan: Avoid fried foods, chicken skin, eggs, butter margarine, pastries and meat. Be it pork or beef they have a lot of cholesterol LDL goal of less than 130 and triglyceride of less than 150 on atorvastatin 10 mg once a (6) Obesity (BMI 30-39.9): Code(s): E66.9 - Obesity, unspecified Category: Medical Plan: Diet and exercise Plan History of Present Illness The patient is an 84-year-old female presenting for chronic management of hypertension and lumbar spondylosis. Blood pressure at home occasionally spikes, managed with losartan, metoprolol, and hydrochlorothiazide, while avoidance of amlodipine is due to associated ankle swelling. The lumbar spondylosis is associated with severe spinal canal stenosis at L3-L4, confirmed by MRI, and potentially affecting the cauda equina. Current management is conservative, with surgical options deferred pending symptom progression. Additionally, she is addressing osteopenia, hypercholesterolemia with atorvastatin use, and impaired glucose tolerance. Weight gain poses a concern, exacerbated by dietary habits involving excess carbohydrate and alcohol intake. The presence of arthritis in the thumbs is noted but not significantly impeding function. Health Maintenance - Hypercholesterolemia managed with atorvastatin 10 mg daily; LDL goal <130 mg/dL, triglycerides <150 mg/dL. - Blood pressure monitored at home with readings ranging from 135 to 145 mmHg. - Recent vaccinations include flu and COVID-19 vaccines, and shingles vaccine 2 weeks prior. - Pending RSV vaccination. - Encouraged moderation in dietary habits, specifically in alcohol and carbohydrate intake. - Recommended blood work, specifically fasting, to monitor glucose levels. Social History - Reports dietary habits with excessive carbohydrate and alcohol consumption. - Acknowledges engaging in moderate exercise, recently resuming walking activities after a period of inactivity due to back issues. Review of Systems - Musculoskeletal: Reports lumbar pain; chronic, low-grade. - Cardiovascular: Reports occasional elevated blood pressures. - Endocrine: Denies any other symptoms associated with glucose tolerance issues. - Gastrointestinal: Reports no issues with current GERD management. - Neurological: Denies new neurological symptoms; slight difficulty initiating urination occasionally. - Psychological: Denies concerns impacting daily living apart from stress-related blood pressure spikes. Physical Exam Results - Labs in October 2023: Normal blood count, normal electrolytes, normal renal function; elevated blood sugar at 109 mg/dL, normal liver function tests, triglycerides at 151 mg/dL, LDL at 105 mg/dL, low vitamin D noted. Plan For hypertension, nifedipine will be added, considering previous complications with amlodipine. Monitor blood pressure trends on home devices. Continual conservative management for lumbar spondylosis with avoidance of surgical options unless symptoms worsen. Atorvastatin 10 mg daily for hypercholesterolemia with diet modifications to achieve lipid goals. Implied glucose tolerance management includes dietary focus and regular glucose monitoring. Arthritis in fingers to be monitored, with activity moderation encouraged. Patient was informed and verbally consented to the use of an ambient scribe for clinic note documentation during this visit. Discussion Notes I discussed the likelihood of maintaining conservative treatment for lumbar spondylosis, highlighting options should symptoms progress, including corticosteroid injections and possible future surgical intervention if functional impairment occurs. For hypertension, introduction of nifedipine was agreed upon. Risks of non-compliance with current dietary and lifestyle recommendations were addressed, emphasizing the potential need for continued medication if blood pressure does not adequately respond to current regimens. Explained management actions relating to hypercholesterolemia and potential follow-up actions if glucose tolerance shows adverse trends. Patient expressed understanding and agreed to proposed management plans, including continuation of atorvastatin and monitoring her dietary intake concerning carbohydrates and alcohol. Patient Instructions - Begin nifedipine as directed for blood pressure management. - Continue current medications for blood pressure, cholesterol, and GERD. - Monitor blood pressure regularly at home and report significant changes. - Get blood work done as recommended after starting nifedipine. - Continue following a diet low in sodium and carbohydrates. - Limit alcohol intake. - Stay physically active with walking when able. - Schedule follow-ups as discussed. - Call back for any unexpected symptoms or side effects, especially impacting function. Medications: New nifedipine ER 30 mg PO DAILY 30 tabs 3RF I10 - Essential (primary) hypertension
--- OUTSIDE RECORDS SUMMARY | 2024-11-03 12:17 | XMS_ITS | Clinical Summary ---
Author Organization [address] [facility] Address [address] [place] [address] Phone Care Team Providers Care [employer] Salesperson Name Role Phone Devin Reina MD Primary Care Provider [phone] Allergies No known active allergies Medications ketorolac (ACULAR) 0.5 % ophthalmic solution PUT 1 DROP INTO AFFECTED EYE 4 TIMES A DAY START 3 DAYS PRIOR TO SURGERY& CONTINUE FOR 4WKS POST-OP 4 Active ondansetron ODT (ZOFRAN-ODT) 4 mg disintegrating tablet TAKE 1 TABLET BY MOUTH EVERY 8 HOURS NEEDED FOR NAUSEA AND VOMITING FOR 3 DAYS 4 Active potassium chloride (KLOR-CON) 10 mEq CR tablet 1 TABLET BY MOUTH 4 TIMES A DAY,X2 DAYS 4 Active losartan (COZAAR) 100 mg tablet Take 1 tablet (100 mg total) by mouth 1 (one) time each day. Active atorvastatin (LIPITOR) 10 mg tablet Take 1 tablet (10 mg total) by mouth at bedtime. Active hydroCHLOROthiazide (HYDRODIURIL) 25 mg tablet Take 1 tablet (25 mg total) by mouth 1 (one) time each day. Active metoprolol tartrate (LOPRESSOR) 100 mg tablet Take 1 tablet (100 mg total) by mouth 2 (two) times a day. Active Active Problems Problem Noted Date Diagnosed Date Spinal stenosis of lumbar re gion with neurogenic claudication 06/11/2024 Assessment & Plan (06/11/2024 4:38 PM EST): Patient is s/p L3-4, L4-5 decompression 07/26/2017. She reports doing well for about 5 or 6 years. Then about a year ago she started noticing burning in her perineal region, especially if she was standing >5 to 10 minutes, or walking, better with sitting. Some days pain is worse, depending on her activity, she states she would say she only has 1 bad day a week. She denies saddle anesthesia. The last few months she has been using a cane when she has to walk distances or go outside. She has a chairlift she uses at home. She notes her balance is getting worse with aging, had a few bad falls the last few years. On an average day her pain is a 3-4/10, on a bad day 7/10. She has history of osteopenia. States she has history of right buttock pain sciatica x 35 years. 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 Patient had MRI lumbar spine without contrast 05/31/2024 at [facility], by report she has severe central and severe left neuroforaminal narrowing L3-4 with superimposed superior migrated disc extrusion and DJD, moderate stenosis L4-5 with clumping of the cauda equina nerve roots. These are levels that had prior surgery 2018, no contrast given. I reviewed the report with the patient, however we do not currently have online access to [facility], have been trying to get the images sent over on PACS. Ms. Turner has perineal burning, but no saddle anesthesia or incontinence, has good strength to resistance bilaterally in the LEs, does not seem to have cauda equina syndrome. She was referred here for a stat appointment to rule out cauda equina, we called again to get images sent over, we will look again in a little bit to review imaging. I will call patient with update after review her imaging with Dr. Kumar. We talked about conservative treatment options like physical therapy to help with balance and core strength, she states her balance has been getting worse, however she states she has an upcoming appointment on 06/18/2024 at [facility] for physical therapy. All questions answered, I asked her to call with any concerns or questions. ADDENDUM 06/11/2024 4:30 PM: Patient came back with [facility] MRI CD, I had reviewed images with Dr. Kumar, also showed images to patient. Dr. Kumar notes that patient does have severe L3-4 stenosis with disc herniation, DJD. She is recommending we check flexion-extension x-rays, see if there is enough remaining spinous process that she may be able to offer redo L3-4 decompression, discectomy, placement of Coflex device. Patient understands, will go on Saturday for x-rays. All questions answered. Surgical History Surgery Date Site/Laterality Comments LAMINECTOMY 07/16/2017 Bilateral L3-4, L4-5 decompression, Dr. Kumar OOPHORECTOMY Left CARPAL TUNNEL RELEASE Medical History Medical History Date Comments High blood pressure Osteopenia High cholesterol Social History Tobacco Use Types Packs/Day Years Used Date Smoking Tobacco: Never Passive Smoke Exposure: Never Smokeless Tobacco: Never Tobacco Cessation:Counseling Given: Not Answered Comments Unknown Sex and Gender Information Value Date Recorded Sex Assigned at Female 06/15/2024 12:39 PM EST Legal Sex Female 12:47 PM EST Gender Identity Female 06/15/2024 12:39 PM EST Sexual Orientation Straight 06/15/2024 12 :39 PM EST Obstetrics History Last Filed Vital Signs Vital Sign Reading Time Taken Comments Blood Pressure - - Pulse - - Temperature - - Respiratory Rate - - Oxygen Saturation - - Inhaled Oxygen Concentration - - Weight 67.6 kg (149 lb) 06/11/2024 2:43 PM EST Height 152.4 cm (5') 06/11/2024 2:43 PM EST Body Mass Index 29.1 06/11/2024 2:43 PM EST Plan of Treatment Health Maintenance Due Date Last Done Comments RSV Immunization Adult Patients (1 - 1-dose 75+ series) 2016 Pneumococcal Vaccine: 50+ Years (2 of 2 - PCV) 06/27/2016 06/27/2015 Depression Screening 05/08/2022 Falls Risk Assessment 05/08/2022 Medicare Annual Wellness Visit 05/08/2022 Osteoporosis Screening (Bone Density Screening) 05/08/2022 Social Influencers of Health Screening 05/08/2022 COVID-19 Vaccine ( season) 2024 03/18/2024, 04/29/2023, 03/19/2022, Additional history exists DTaP,Tdap,and Td Vaccines (4 - Td or Tdap) 09/17/2032 09/17/2022, 06/24/2012, 02/27/2012 Hepatitis A Vaccines Aged Out 10/23/2012, 02/27/20 12 No longer eligible based on patient's age to complete this topic Zoster Vaccines Completed 02/14/2022, 10/11/2021 Influenza Vaccine Completed 04/09/2024, , 04/05/2022, Additional history exists HIB Vaccines Aged Out No longer eligi ble based on patient's age to complete this topic HPV Vaccines Aged Out No longer eligi ble based on patient's age to complete this topic Hepatitis B Vaccines Aged Out No long er eligible based on patient's age to complete this topic IPV Vaccines Aged Out No longer eligi ble based on patient's age to complete this topic MMR Vaccines Aged Out No longer eligi ble based on patient's age to complete this topic Meningococcal ACWY Vaccine Aged Out N o longer eligible based on patient's age to complete this topic Meningococcal B Vaccine Aged Out No l onger eligible based on patient's age to complete this topic RSV Immunization Patients Under 20 months Aged Out No longer eligible based on patient's age to complete this topic Varicella Vaccines Aged Out No longer eligible based on patient's age to complete this topic Insurance MEDICARE Care Teams [employer] Salesperson Relationship Specialty Start Date End Date Devin Reina MD [address] [place] [address] [address] [facility] [place] [address] PCP - General Internal Medicine 05/13/17
== END 2024-11-03 12:14 | disposition home or self-care (01) ==
LOC: HO.HMCH 11:39
PROVIDERS: PCP Internal Medicine; Visit Provider Internal Medicine
DX: M48.061 Spinal stenosis, lumbar region without neurogenic claudication (principal); E66.9 Obesity, unspecified; Z68.30 Body mass index [BMI] 30.0-30.9, adult; R73.02 Impaired glucose tolerance (oral); I10 Essential (primary) hypertension; K21.9 Gastro-esophageal reflux disease without esophagitis; E78.00 Pure hypercholesterolemia, unspecified

== ENCOUNTER → 2024-11-03 11:38 | Outpatient (BNVA) | payer MEDICARE, SELFPAY | PROVIDERS: PCP Internal Medicine; Visit Provider Internal Medicine | DX: I10 Essential (primary) hypertension (principal); M48.061 Spinal stenosis, lumbar region without neurogenic claudication; R73.02 Impaired glucose tolerance (oral); K21.9 Gastro-esophageal reflux disease without esophagitis; E78.00 Pure hypercholesterolemia, unspecified; E66.9 Obesity, unspecified; Z68.30 Body mass index [BMI] 30.0-30.9, adult; Z71.3 Dietary counseling and surveillance | CPT/HCPCS: 99212 ==

== ENCOUNTER 2025-02-25 08:39 | Outpatient (REF) | payer MEDICARE, SELFPAY ==
[2025-02-25 09:00] LABS: MANUAL DIFF FLAG NO
[2025-02-25 09:28] LABS: Hematocrit 37.6 % (37.0-47.0); Hemoglobin 13.6 g/dl (12.0-16.0); Imm Gran Abs Auto 0.03 X10*3/uL (0.00-0.03); Imm Gran Pct Auto 0.4 % (0.0-0.4); Lymphocytes Absolute Auto 2.7 X10*3/uL (1.2-4.9); Mean Corpuscular HGB Conc 36.2 g/dl (31.0-35.0); Mean Corpuscular Hemoglobin 33.2 pg (27.0-33.0); Mean Corpuscular Volume 91.7 fL (80.0-98.0); NRBC Abs Auto 0.000 X10*3/uL (0.0-0.012); NRBC Pct Auto 0.0 /100WBC (0.0-0.2); Platelet Count 227 X10*3/uL (160-400); Red Blood Count 4.10 X10*6/uL (4.20-5.50); White Blood Count 8.5 X10*3/uL (4.8-10.8)
[2025-02-25 09:42] LABS: Hemoglobin A1C 142.5613 umol/L; Total Hemoglobin (HGBA1C) 3602.9081 umol/L
--- OUTSIDE RECORDS SUMMARY | 2025-02-25 09:55 | XMS_ITS | Patient Health Record ---
Author Organization [facility] Address [address] [place] [address] Care Team Providers Care Processor Grain Name Role Phone Devin Reina MD Primary Care Provider Jose Vanessa Jr Unavailable [phone] Reason For Referral No Information Medications Medication SIG (Take, Route, Frequency, Duration) Notes Start Date End Date Status Vitamin D 1000 UNIT 1 tablet Orally Once a day Active Atorvastatin Calcium 10 MG 1 tablet Oral ly Once a day Active amLODIPine Besylate 2.5 MG 1 tablet Oral ly Once a day Active Xalatan 0.005 % 1 drop into affected eye in the evening Ophthalmic Once a day Active hydroCHLOROthiazide 12.5 MG 1 capsule Or ally Once a day Active Social History Alcohol Screen Question Answer Notes Did you have a drink contain ing alcohol in the past year? Yes How often did you have a dri nk containing alcohol in the past year? 2 to 3 times a week (3 points) How many drinks did you have on a typical day when you were drinking in the past year? 3 or 4 drinks (1 point) How often did you have 6 or more drinks on one occasion in the past year? Never (0 point) Points 4 Interpretation Positive Problems Problem Type SNOMED Code ICD Code Onset Dates Problem Status W/U Status Risk Notes Problem [id number] Gastroesophageal reflux disease without esophagitis (K21.9) Active confirmed Problem [id number] Hematemesis with out nausea (K92.0) Active confirmed Plan Of Treatment Future Test Test Name Order Date COLONOSCOPY 08/25/2014 UPPER GI ENDOSCOPY 03/15/2016 Insurance Providers Payer Name Payer Address Payer Phone Subscriber Number Group Number Insured Name Patient Relationship to Insured Coverage Start Date Coverage End Date MEDICARE OF [employer] [address] [place] [address] [phone] [id number] EDIE JIMÉNEZ Self - patient is the insured Medical (General) History Medical History History ICD Code elevated cholesterol hypertension glaucoma Surgical History Surgery Date(Month/Year) tubal ligation tonsillectomy removal mable cyst left ovary + fallopian tube removed
--- OUTSIDE RECORDS SUMMARY | 2025-02-25 09:56 | XMS_ITS | Clinical Summary ---
Author Organization 175 [facility] Address [address] [place] [address] Phone Care Team Providers Care General Forecaster Name Role Phone Devin Reina MD Primary Care Provider [phone] Allergies No known active allergies Medications ketorolac [...] MRI lumbar spine without contrast 05/31/2024 at [place], by report she has severe central and severe left neuroforaminal narrowing L3-4 with superimposed superior migrated disc extrusion and DJD, moderate stenosis L4-5 with clumping of the cauda equina nerve roots. These are levels that had prior surgery 2018, no contrast given. I reviewed the report with the patient, however we do not currently have online access to [place], have been trying to get the images [...] has an upcoming appointment on 06/18/2024 at [facility] for physical therapy. All questions answered, I asked her to call with any concerns or questions. ADDENDUM 06/11/2024 4:30 PM: Patient came back with [place] MRI CD, I had reviewed images with [...] (2 of 2 - PCV) 06/27/2016 06/27/2015 Falls Risk Assessment 05/08/2022 Medicare Annual Wellness Visit 05/08/2022 Osteoporosis Screening (Bone Density Screening) 05/08/2022 Social Influencers of Health Screening 05/08/2022 Depression Screening 06/10/2024 COVID-19 Vaccine ( season) 2025 03/18/2024, 04/29/2023, 03/19/2022, Additional history exists Influenza Vaccine (#1) 2025 , 04/11/2023, 04/05/2022, Additional history exists DTaP,Tdap,and Td Vaccines (4 - Td or Tdap) 09/17/2032 09/17/2022, 06/24/2012, 02/27/2012 Hepatitis A Vaccines Aged Out 10/23/2012, 02/27/20 12 No longer eligible based on patient's age to complete this topic Zoster Vaccines Completed 02/14/2022, 10/11/2021 HIB Vaccines Aged Out No longer eligi [...] complete this topic Insurance MEDICARE Care Teams General Forecaster Relationship Specialty Start Date End Date Devin Reina MD [address] [place] [address] [address] [facility] [place] [address] PCP - General Internal Medicine 05/13/17
--- OUTSIDE RECORDS SUMMARY | 2025-02-25 09:56 | XMS_ITS | Encounter Summary ---
Author Organization [facility] Address [address] [place] [address] Care Team Providers Care Freelance Operator Name Role Phone Devin Reina MD Primary Care Provider [phone] Encounter Details Date Type Department Care Team (Late st Contact Info) Description 11/10/2024 Lab Requisition [facility] - Main Lab [address] [place] [address] Pedrito Gunderson, DMD [address] [place] [address] Other lesions of oral mucosa Social History Tobacco Use Types Packs/Day Years Used Date Smoking Tobacco: Never Passive Smoke Exposure: Never Smokeless Tobacco: Never Comments Unknown Sex and Gender Information Value Date Recorded Sex Assigned at Female 06/15/2024 12:39 PM EST Legal Sex Female 12:47 PM EST Gender Identity Female 06/15/2024 12:39 PM EST Sexual Orientation Straight 06/15/2024 12 :39 PM EST documented as of this encounter Plan of Treatment Not on file documented as of this encounter Procedures Procedure Name Priority Date/Time Associated Diagnosis Comments TISSUE EXAM Routine 11/10/2024 Other lesions of oral mucosa documented in this encounter Results * Tissue Exam (11/10/2024) Final Diagnosis Oral mucosa, right soft palate, biopsy: Squamous papilloma 11/11/2024 9:25 AM EDT [facility] Clinical Information 3mm sessile mass right soft palate ? papiloma 11/11/2024 9:25 AM EDT [facility] Gross Description A. Oral Cavity, right soft palate 3mm sessile mass: Labeled with the patient's name and information . Received in formalin is a soft, white, finely nodular portion of epithelial tissue which is inked blue at the base and submitted in toto in one cassette, one piece, multiple levels on one slide. TS 11/11/2024 9:25 AM EDT [facility] Disclaimer Unless otherwise specified, all tissue is 10% NB formalin fixed and paraffin embedded. 11/11/2024 9:25 AM EDT [facility] Tissue Oral cavity structure / Unknown 11/10/2024 11/10/2024 3:00 PM EDT Pedrito Gunderson DMD LAB PATHOLOGY ORDERABLES Lillie l Result [facility] [address] [place] [address], documented in this encounter Visit Diagnoses Diagnosis Other lesions of oral mucosa documented in this encounter Care Teams Freelance Operator Relationship Specialty Start Date End Date Devin Reina MD [address] [place] [address] Dr Vil[address] [facility] [place] [address] PCP - General Internal Medicine 05/13/17 documented as of this encounter
[2025-02-25 10:06] LABS: Alanine Aminotransferase 32 U/L (0-31); Albumin Level 4.7 g/dL (3.5-5.0); Alkaline Phosphatase 91 U/L (39-117); Anion Gap 8 (12-20); Aspartate Amino Transferase 36 U/L (5-31); Blood Urea Nitrogen 15 mg/dL (9-16); Calcium 10.1 mg/dL (8.4-10.2); Carbon Dioxide 33 mmol/L (22-29); Chloride 99 mmol/L (96-108); Cholesterol 208 mg/dL (<200); Estimated Glomerular Filt Rate > 60; HDL Cholesterol 61 mg/dL (>40); Potassium 4.1 mmol/L (3.3-5.1); Sodium 136 mmol/L (135-145); Total Protein 7.1 g/dL (6.5-8.0); Triglycerides 156 mg/dL (<150)
[2025-02-25 10:26] LABS: Free T4 (Free Thyroxine) 0.87 ng/dL (0.71-1.85); Thyroid Stimulating Hormone 2.88 uIU/mL (0.32-4.0)
[2025-02-25 10:35] LABS: Folate 11.6 ng/mL (> or = 4.0); Vitamin B12 323 pg/mL (200-900)
== END 2025-02-25 08:40 | disposition home or self-care (01) ==
LOC: HO.LAB 08:39
PROVIDERS: PCP Internal Medicine; Visit Provider Internal Medicine
DX: Z13.1 Encounter for screening for diabetes mellitus (principal); E78.00 Pure hypercholesterolemia, unspecified
CPT/HCPCS: 36415; 80053; 80061; 82306; 82607; 82746; 83036; 84439; 84443; 85025

== ENCOUNTER 2025-03-10 11:03 | Outpatient (AMB) | payer MEDICARE, SELFPAY ==
[2025-03-10 11:07] VITALS: BP 148/68; PULSE 74; O2SAT 97; BMI 30.5
--- NOTE | 2025-03-10 11:07 | MHC.PC.OV ---
Vital Signs 03/10/25 11:07 Height 5 ft Weight 156 lb BMI 30.5 BP 148/68 H Blood Pressure Location Lt brachial Position Sitting Pulse 74 Pulse Source Pulse Oximeter Pulse Oximetry (%) 97 Oxygen Delivery Method Room Air Intake Visit Reasons: Hypertension Allergies lisinopril Allergy (Unknown, Verified 03/10/25 11:07) Unknown amlodipine Adverse Reaction (Intermediate, Verified 03/10/25 11:07) leg swelling Medication List - Last Reconciled 03/10/25 by Devin Reina MD atorvastatin 10 mg PO DAILY chlorthalidone 25 mg PO DAILY losartan 100 mg PO DAILY 90 days metoprolol succinate ER 100 mg PO DAILY 90 days vitamins A,C,M-pbkc-eutgpr 2,148 mcg-113 mg-45 mg-17.4mg (PreserVision AREDS) 1 tab PO BID Tobacco use date assessed: 11/03/24 Fall risk assessment: 1 Fall in past year Last assessed Fall Risk: 03/10/25 Dental Screening Dental Screen Date: 11/03/24 [facility] Medical History (Updated 03/10/25 @ 11:20 by Devin Reina MD) Obesity (BMI 30.0-34.9) Breast cancer screening by mammogram Overweight (BMI 25.0-29.9) Ulnar neuropathy Anxiety and depression Hypercholesterolemia Vitamin D deficiency Lumbar degenerative disc disease GERD (gastroesophageal reflux disease) Hypertension Surgical History History of carpal tunnel surgery History of lumbar surgery History of left oophorectomy History of D&C History of tonsillectomy Family History Father No problems noted. Mother Cancer Hypertension Brother In good health Son In good health Son In good health Social History (Updated 11/20/23 @ 11:26 by Devin Reina MD) Housing: House Alcohol intake: current Alcohol intake frequency: a few times a week Comment: 5 days a week 2 glasses Patient Tobacco Use Status: Never used Tobacco Tobacco use type: Cigarette e-Cigarette/Vaping Use: Never Used Second Hand Smoke Exposure: No service: No Current occupational status: retired Cognitive needs: Yes Hearing needs: Yes (hearing aide) Vision needs: Yes (glasses) Questionnaire PHQ-9 Over the last 2 weeks, how often have you been bothered by any of the following problems? 1. Little interest or pleasure in doing things: not at all 2. Feeling down, depressed, or hopeless: not at all 3. Trouble falling or staying asleep, or sleeping too much: not at all 4. Feeling tired or having little energy: not at all 5. Poor appetite or overeating: not at all 6. Feeling bad about yourself - or that you are a failure or have let yourself or your family down: not at all 7. Trouble concentrating on things, such as reading the newspaper or watching television: not at all 8. Moving or speaking so slowly that other people could have noticed. Or the opposite - being so fidgety or restless that you have been moving around a lot more than usual: not at all 9. Thoughts that you would be better off or of hurting yourself in some way: not at all Total score: 0 Depression Screening Interpretation: Negative Depression Screening Done: Yes Source: Developed by Drs. Ag Disla, Ruma Bowen, Chico Garza and colleagues, with an educational emil from [employer]: online travellers [employer]. Thrive Questionnaire Date Thrive assessed: 10/28/24 I am a: Patient What is your living situation today?: I have a steady place to live Within the past 12 months, did the food you bought not last and you didn't have the money to get more?: Never true Within the past 12 months, did you worry whether your food would run out before you got money to buy more?: Never true Do you have trouble paying for medicines?: No Do you have trouble getting transportation to medical appointments?: No Do you have trouble paying your heating and electricity bill?: No Do you have trouble taking care of your child, family member or friend?: No Do you have trouble with day-to-day activities such as bathing, preparing meals, shopping, managing finances, etc.?: No Are you currently unemployed and looking for a job?: No Are you interested in more education?: No Please select the resources that you would like help with: None Currently or been in a relationship where the following occur: No concerns reported THRIVE Score: 0 LORA-7 AMB Questionnaire LORA-7 Date LORA - 7 assessed: 11/03/24 Source: Developed by Drs. Ag Disla, Ruma Bowen, Chico Garza and colleagues, with an educational emil from [employer]: online travellers club. Physical exam (Primary Care) Vital Signs: Last Vital Signs Pulse 74 03/10/25 11:07 BP 148/68 H 03/10/25 11:07 Pulse Ox 97 03/10/25 11:07 Oxygen Delivery Method Room Air 03/10/25 11:07 BMI result Body Mass Index 30.5 Tobacco/Smoking Status: Tobacco use Status Tobacco use date assessed 11/03/24 03/10/25 11:08 Patient Tobacco Use Status Never used Tobacco 03/10/25 11:08 Tobacco use type Cigarette 03/10/25 11:08 e-Cigarette/Vaping Use Never Used 03/10/25 11:08 PHQ-9: PHQ-9 Score PHQ-9: Total score 0 03/10/25 11:18 Depression Screening Interpretation: Negative Thrive Assessment: Date of Thrive Assessment Date Thrive assessed 10/28/24 03/10/25 11:08 Currently or been in a relationship where the following occur: No concerns reported Const General: alert; No acute distress Eyes Conjunctivae: conjunctivae normal Resp Auscultation: clear to auscultation bilaterally Cardio Rate: regular rate Rhythm: regular rhythm GI Inspection: Yes normal to inspection Extrem General: Yes normal to inspection and No edema Coding Level of Care Code Est Pt Level 4 (92216) Complex EM visit Add On G2211 Diagnoses Essential hypertension I10 Hypertension type: essential hypertension Hypercholesterolemia E78.00 Impaired glucose tolerance R73.02 Gastroesophageal reflux disease without esophagitis K21.9 Esophagitis presence: without esophagitis Lumbar spinal stenosis M48.061 Obesity (BMI 30.0-34.9) E66.9 LFT elevation R79.89 Assessment & Plan Assessment & Plan (1) Hypertension: Code(s): I10 - Essential (primary) hypertension Category: Medical Qualifiers: Hypertension type: essential hypertension Qualified Code(s): I10 - Essential (primary) hypertension Plan: Continue with blood pressure medication. Decrease salt intake and exercise patient on chlorthalidone 25 mg once a day losartan 100 mg once a day metoprolol 100 mg once a day (2) Hypercholesterolemia: Code(s): E78.00 - Pure hypercholesterolemia, unspecified Category: Medical Plan: Avoid fried foods, chicken skin, eggs, butter margarine, pastries and meat. Be it pork or beef they have a lot of cholesterol LDL goal of less than 130 and triglyceride of less than 150 (3) Impaired glucose tolerance: Code(s): R73.02 - Impaired glucose tolerance (oral) Category: Medical Plan: Decrease the amount of carbohydrate intake, pasta, bread, rice and potatoes are all sugar and that is aside from all the sweet stuff, remember that fruits are good but they are Sweet also. (4) GERD (gastroesophageal reflux disease): Code(s): K21.9 - Gastro-esophageal reflux disease without esophagitis Category: Medical Qualifiers: Esophagitis presence: without esophagitis Qualified Code(s): K21.9 - Gastro-esophageal reflux disease without esophagitis Plan: Avoid the foods that causes that usually spicy foods, tomato products, juices, coffee, soda and foods that your sensitive to. After eating do not lie down, allow 3-4 hours before in lie down. And keep the head of bed above 30 degrees to avoid the acid from going up. (5) Lumbar spinal stenosis: Code(s): M48.061 - Spinal stenosis, lumbar region without neurogenic claudication Category: Medical Plan: Continue to keep active. (6) Obesity (BMI 30.0-34.9): Code(s): E66.9 - Obesity, unspecified Category: Medical (7) LFT elevation: Code(s): R79.89 - Other specified abnormal findings of blood chemistry Category: Medical Plan History of Present Illness The patient is an 84-year-old female presenting for a follow-up visit. She has a history of cervical radiculopathy and lumbar spinal stenosis, which contribute to her neck and back pain. These conditions have been managed conservatively, and she reports managing pain by alternating activity with rest. The patient also has hypercholesterolemia, with her LDL cholesterol at goal at 116 mg/dL, though her triglycerides are slightly elevated at 156 mg/dL. She is currently on atorvastatin for cholesterol management. Her medical history includes gastroesophageal reflux disease (GERD) and hypertension, for which she is on multiple antihypertensive medications including chlorthalidone, losartan, and metoprolol. Her blood pressure readings at home range from 125 to 140 mmHg, with occasional elevations when upset. The patient has impaired glucose tolerance, with a fasting blood sugar of 111 mg/dL and a hemoglobin A1c of 5.8%. She has been advised to monitor her carbohydrate intake and maintain physical activity to prevent progression to diabetes. Her liver function tests show mild elevation, with plans for an ultrasound and hepatitis profile to further evaluate. The patient has a vitamin D deficiency and has been advised to take vitamin D supplements, especially during the winter months. She prefers to purchase [id number]-[id number] supplements from [employer]. Health Maintenance - Colonoscopy last performed in 2014 - Mammogram completed in September 2023 - Bone density screening conducted in December 2023 - Vaccinations: Shingles, tetanus, pneumonia up to date; plans for COVID and flu vaccines - Vitamin D supplementation recommended due to deficiency Social History - Exercise: Alternates activity with rest due to neck and back pain - Nutrition: Monitors carbohydrate intake to manage glucose levels Review of Systems - Cardiovascular: Denies chest pain, reports blood pressure fluctuations with emotional stress - Musculoskeletal: Reports neck and back pain managed with activity modification Physical Exam Results - Labs: Normal blood count, normal electrolytes, fasting blood sugar 111 mg/dL, hemoglobin A1c 5.8%, mild liver function test elevation, LDL 116 mg/dL, triglycerides 156 mg/dL, low vitamin D Plan Patient was informed and verbally consented to the use of an ambient scribe for clinic note documentation during this visit. 1. Cervical Radiculopathy The patient continues to manage cervical radiculopathy conservatively, alternating activity with rest to alleviate symptoms. 2. Lumbar Spinal Stenosis Lumbar spinal stenosis is managed with activity modification, and the patient is advised to seek further intervention if symptoms worsen. 3. Hypercholesterolemia The patient is on atorvastatin, with LDL cholesterol at goal and triglycerides slightly elevated; dietary modifications are recommended to manage triglyceride levels. 4. Gastroesophageal Reflux Disease (Gerd) GERD management includes lifestyle modifications and monitoring symptoms. 5. Hypertension Hypertension is managed with chlorthalidone, losartan, and metoprolol; blood pressure is monitored at home, and medication adjustments are considered based on readings. 6. Impaired Glucose Tolerance The patient is advised to monitor carbohydrate intake and maintain physical activity to prevent progression to diabetes; follow-up testing is planned. 7. Vitamin D Deficiency Vitamin D supplementation is recommended, with the patient opting for [id number] options. 8. Mildly Elevated Liver Function Tests Further evaluation with liver ultrasound and hepatitis profile is planned to assess mildly elevated liver function tests. Discussion Notes During the visit, we discussed the management of the patient's hypertension, including the possibility of adjusting her current medications to better control her blood pressure. We also reviewed her cholesterol levels and the importance of dietary modifications to manage triglycerides. The patient was informed about her impaired glucose tolerance and advised on lifestyle changes to prevent diabetes. Plans for further evaluation of her liver function tests were discussed, including an ultrasound and hepatitis profile. Patient Instructions - Monitor blood pressure at home and report any significant changes. - Follow a low-carbohydrate diet to manage glucose levels. - Continue taking prescribed medications as directed. - Schedule and attend liver ultrasound and hepatitis profile as planned. - Take vitamin D supplements, especially during winter months. - Stay physically active to manage weight and overall health. Orders: Orders US abdomen complete Today R79.89 - Other specified abnormal findings of blood chemistry Comprehensive Met. Panel 3 Months R79.89 - Other specified abnormal findings of blood chemistry Hemoglobin A1c 3 Months R79.89 - Other specified abnormal findings of blood chemistry Hepatitis B,C Profile 3 Months R79.89 - Other specified abnormal findings of blood chemistry
--- OUTSIDE RECORDS SUMMARY | 2025-03-10 12:37 | XMS_ITS | Clinical Summary ---
Author Organization 175 [facility] Address [address] [place] [address] Phone Care Team Providers Care Service Observer Name Role Phone Devin Reina MD Primary Care Provider Allergies No known active allergies Medications ketorolac [...] MRI lumbar spine without contrast 05/31/2024 at [place], by report she has severe central and severe left neuroforaminal narrowing L3-4 with superimposed superior migrated disc extrusion and DJD, moderate stenosis L4-5 with clumping of the cauda equina nerve roots. These are levels that had prior surgery 2018, no contrast given. I reviewed the report with the patient, however we do not currently have online access to [place], have been trying to get the images [...] has an upcoming appointment on 06/18/2024 at [facility] for physical therapy. All questions answered, I asked her to call with any concerns or questions. ADDENDUM 06/11/2024 4:30 PM: Patient came back with [place] MRI CD, I had reviewed images with [...] complete this topic Insurance MEDICARE Care Teams Service Observer Relationship Specialty Start Date End Date Devin Reina MD [address] [place] [address] [address] [facility] [place] [address] PCP - General Internal Medicine 05/13/17
--- OUTSIDE RECORDS SUMMARY | 2025-03-10 12:38 | XMS_ITS | Encounter Summary ---
Author Organization [facility] Address [address] [place] [address] Care Team Providers Care Resin Coater Name Role Phone Devin Reina MD Primary Care Provider [phone] Encounter Details Date Type Department Care Team (Late st Contact Info) Description 11/10/2024 Lab Requisition [facility] - Main Lab [address] [place] [address] Pedrito Gunderson, DMD [address] [place] [address] Other lesions of oral mucosa Social History [...] biopsy: Squamous papilloma 11/11/2024 9:25 AM EDT [facility] Clinical Information 3mm sessile mass right soft palate ? papiloma 11/11/2024 9:25 AM EDT [facility] Gross Description A. Oral Cavity, right soft palate 3mm sessile mass: Labeled with the patient's name and information . Received in formalin is a soft, white, finely nodular portion of epithelial tissue which is inked blue at the base and submitted in toto in one cassette, one piece, multiple levels on one slide. TS 11/11/2024 9:25 AM EDT [facility] Disclaimer Unless otherwise specified, all tissue is 10% NB formalin fixed and paraffin embedded. 11/11/2024 9:25 AM EDT [facility] Tissue Oral cavity structure / Unknown 11/10/2024 11/10/2024 3:00 PM EDT Pedrito Gunderson DMD LAB PATHOLOGY ORDERABLES Lillie l Result [facility] [address] [place] [address], documented in this encounter Visit Diagnoses Diagnosis Other lesions of oral mucosa documented in this encounter Care Teams Resin Coater Relationship Specialty Start Date End Date Devin Reina MD [address] [place] [address] Dr Villegas [address] [facility] [place] [address] PCP - General Internal Medicine 05/13/17 documented as of this encounter
== END 2025-03-10 11:33 | disposition home or self-care (01) ==
LOC: HO.HMCH 11:04
PROVIDERS: PCP Internal Medicine; Visit Provider Internal Medicine
DX: I10 Essential (primary) hypertension (principal); E78.00 Pure hypercholesterolemia, unspecified; E66.9 Obesity, unspecified; Z68.30 Body mass index [BMI] 30.0-30.9, adult; R73.02 Impaired glucose tolerance (oral); K21.9 Gastro-esophageal reflux disease without esophagitis; M48.061 Spinal stenosis, lumbar region without neurogenic claudication; R79.89 Other specified abnormal findings of blood chemistry

== ENCOUNTER → 2025-03-10 11:03 | Outpatient (BNVA) | payer MEDICARE, SELFPAY | PROVIDERS: PCP Internal Medicine; Visit Provider Internal Medicine | DX: I10 Essential (primary) hypertension (principal); E78.00 Pure hypercholesterolemia, unspecified; R73.02 Impaired glucose tolerance (oral); K21.9 Gastro-esophageal reflux disease without esophagitis; M48.061 Spinal stenosis, lumbar region without neurogenic claudication; R79.89 Other specified abnormal findings of blood chemistry; M54.12 Radiculopathy, cervical region; E55.9 Vitamin D deficiency, unspecified; E66.9 Obesity, unspecified; Z68.30 Body mass index [BMI] 30.0-30.9, adult | CPT/HCPCS: 96127; 99212 ==